=== PATIENT | female | born 1935 | race American Indian/Alaskan Native ===

== ENCOUNTER 2017-01-09 06:07 | Inpatient (IN) | payer MEDICARE ==
--- NOTE | 2016-12-30 09:47 | Anesthesia Consultation ---
Anesthesia Consult and Med Hx Date of service: 01/09/17 - Airway Anesthetic Teeth Evaluation: Good ROM Head & Neck: Adequate Mental/Hyoid Distance: Adequate Mallampati Class: Class II Intubation Access Assessment: Probably Good - Pre-Operative Health Status Proposed Anesthetic Plan: Epidural, Spinal Nerve Block: adducter canal block - Pulmonary Hx Smoking: Yes (STOPPED X 25 YRS-1 PPD X 30 YRS) Hx Asthma: No SOB: Yes (SOB) Hx Sleep Apnea: No (VANESSA PRE SCEEN HIGH RISK) - Cardiovascular System Hx Hypertension: Yes (X 7 YRS) - Central Nervous System Hx Neuromuscular Disorder: Yes (Dementia x 2 yrs (mild)) Hx Seizures: No CVA: No - Gastrointestinal Hx Gastroesophageal Reflux Disease: Yes (Mild) - Endocrine Hx Renal Disease: No Hx Non-Insulin Dependent Diabetes: No - Hematic Hx Anemia: No - Other Systems Hx Cancer: No
--- NOTE | 2017-01-08 13:53 | Admit Criteria Form ---
Admission Criteria Documentation: AMBULATORY SURGERY EXCEPTION CRITERIA Ambulatory Surgery Exception Criteria ( Place 'X' for any and all applicable criteria): Surgery or procedure performed on ambulatory basis may require inpatient stay for[A] ANY ONE of the following(1)(2)(3)(4)(5)(6)(7)(8)(9): [X] I. A preoperative situation, condition, or finding that warrants inpatient stay as indicated by ANY ONE of the following: [] a) Inpatient care needed because of severity of a disease or condition rather than the surgery (eg, severe cardiac or respiratory disease, severe infection) (15) (16 ) (17) (18) [] b) Emergent procedure (eg, angioplasty for acute ischemia)(19) [] c) Complex surgical approach or situation as indicated by ANY ONE of the following(3): [] i) Open approach needed instead of usual endoscopic, transcatheter, or other less invasive procedure [] ii) Difficult approach because of previous operation [] iii) Airway monitoring required after open neck procedures(20)(21) [] iv) Large mass requiring unusually extensive dissection [] v) Additional complicating feature requiring inpatient care (eg, drain management)(22(23): [X] d) Major surgery in a pt with high anesthetic risk as indicated by ANY ONE of the following (2)(3)(5)(7)(8): [X] i) ASA risk class III or higher (severe systemic disease impairing function) [D] [] ii) Advanced age (eg, older than 85 years)(14)(24) [] iii) Symptomatic heart failure(25) [] iv) Symptomatic asthma or COPD(8)(21) [] v) Morbid obesity with hemodynamic or respiratory problems(20)( 21)(26)(27) [] vi) Obstructive sleep apnea(20)(21) [] vii) Former premature infants who are younger than 60 weeks [] viii) High risk for severe postoperative abnormalities (eg, severe postoperative hypocalcemia after parathyroidectomy for severe hyperparathyroidism)(27)( 28) [] ix) Unstable angina(25) [] e) Drug-related risk requiring inpatient stay as indicated by ANY ONE of the following(5)(10)(14)(32)(33) [] i) Procedure requires discontinuing drugs or other therapy (eg , antiarrhythmic medication, antiseizure medication), which necessitates inpatient observation or treatment.(18)(31) [] ii) Major surgery and high risk drug use as indicated by ANY ONE of the following: [] 1) Active abuse of cocaine or similar drug [] 2) Monoamine oxidase inhibitor use [] 3) Other drug identified as posing risk [] f) Inadequate outpatient care situation as indicated by ANY ONE of the following(5)(10)(14)(32)(33) [] i) Patient lives remote from medical facility and procedure has urgent complication potential, and temporary nearby residence cannot be arranged [] ii) Patient will have postprocedure incapacitation and inadequate assistance at home, or alternative level of care cannot be arranged. [] iii) Patient will have long general anesthesia or procedure side effect resolution time, and competent person to stay with patient on first postoperative night at home or alternative level of care cannot be arranged. []iv) Other inadequate outpatient situation that cannot be handled by other means [] II. A perioperative event, condition, or finding that warrants inpatient stay as indicated by ANY ONE of the following (1)(2)(3): [] a) Inadequate physiologic recovery: cardiovascular, respiratory, or hemodynamic status not normal or near preoperative baseline(18) [] b) Hemodynamic instability [] c) Patient not alert with near normal or baseline mental status [] d) Temperature not normal or as expected and not appropriate for outpatient treatment of condition [] e) Ambulatory or appropriate activity level status not yet achieved post procedure [E](34)(35)(36) [] f) Operative site not appropriate (eg, unexpected or excessive drainage or bleeding) [] g) Postoperative effects not resolved or adequately managed (eg, significant pain or vomiting not appropriate for outpatient or next level of care)(10)(12) [] h) Complicating features requiring inpatient care as indicated by ANY ONE of the following(37): [] i) Severe complications of procedure (eg, bowel injury, airway compromise, vascular injury,severe hemorrhage) [] ii) Extensive (eg, dissection far beyond usual scope of procedure ) or prolonged (eg, 120 minutes beyond usual) surgery needed requiring inpatient postoperative care [] iii) Conversion to an open or complex procedure that requires inpatient care (eg, open vs laparoscopic cholecystectomy, abdominal vs vaginal hysterectomy)(38) [] iv) Comorbid condition or test result identified during or post procedure that requires inpatient care (7) [] v) Malignant hyperthermia(30) [] vi) Other complicating feature requiring inpatient care(22)(23) Inpatient stay may be needed until ALL of the following are present (1)(2)(3)(4) (5)(6)(10)(14)(33)(40): []a) Physiologic recovery: cardiovascular, respiratory, and hemodynamic status normal or near preoperative baseline []b) Hemodynamic stability []c) Patient alert, with near normal or baseline mental status []d) Temperature appropriate: patient afebrile or temperature appropriate for outpt treatment of condition []e) Activity level appropriate: ambulatory or appropriate activity level post procedure []f) Operative site appropriate as indicated by ALL of the following: []i) Site dry or with expected drainage []ii) Any blood noted is as expected for procedure. []g) Postoperative effects resolved or managed as indicated by ALL of the following: []i) Pain management appropriate for outpatient (or next level of) care(10) []ii) Minimal nausea and vomiting: if present, successfully treated with oral medication(12) []iii) Headache, dizziness, or drowsiness (if present) are mild. []h) Voiding status acceptable as indicated by ANY ONE of the following: []i) Voiding spontaneously []ii) No voiding but instructions given for follow-up in 6 to 8 hours []iii) Urinary catheter in place, and instructions given for follow-up []i) Complicating features requiring inpatient care manageable at a lower level of care(37) []j) Comorbid conditions manageable at a lower level of care(37) The original [employer] content created by [employer] has been revised. The portions of the content which have been revised are identified through the use of italic text or in bold, and [facility] [employer] has neither reviewed nor approved the modified material. All other unmodified content is copyright [employer]. Please see references footnoted in the original [employer] edition 2016 Admission Criteria Met: Yes
[~2017-01-09 06:07] MED LIST: ANCEF/STERILE WATER 2 GM/20 ML IV NR; BACITRACIN IR ONE; LACTATED RINGERS 1,000 ML IV SCH; MARCAINE 0.25% INFILTRATI ONE; MORPHINE IM ONE; NACL INFILTRATI ONE; PEPCID IV NR; POLYMYXIN B SULFATE IV ONE; TORADOL PO ONE
[2017-01-09] MEDS ORDERED: NACL BACTERIOSTATIC INFILTRATI ONE (06:38)
[2017-01-09] MEDS ORDERED: VERSED IV NR (07:00)
[2017-01-09] MEDS ORDERED: NEURONTIN PO NR (07:00)
[2017-01-09] MEDS ORDERED: DECADRON ONE (07:04)
[2017-01-09] MEDS ORDERED: MARCAINE-EPI 0.5%-1:200,000 INFILTRATI ONE (07:04)
[2017-01-09] MEDS ORDERED: MORPHINE ONE (07:05)
--- NOTE | 2017-01-09 07:27 | Anesthesia Day of Surgery ---
Anesthesia Day of Surgery - Day of Surgery Patient Examined: Yes Patient H&P Reviewed: Yes Patient is NPO: Yes Beta Blockers: Yes
[2017-01-09] MEDS ORDERED: DIPRIVAN 10 MG/ML IV ONE (07:32)
[2017-01-09] MEDS ORDERED: XYLOCAINE MPF 2% ONE ×3 (07:33→10:30)
[2017-01-09] MEDS ORDERED: DIPRIVAN 10 MG/ML 1,000 MG/100 ML BOTTLE IV ONE (07:36)
[2017-01-09] MEDS ORDERED: TRANEXAMIC ACID 1,000 MG in NACL 0.9% 100 ML IV NR (08:00)
[2017-01-09] MEDS ORDERED: NACL 0.9% ONE (08:00)
[2017-01-09] MEDS ORDERED: XYLOCAINE 1%/ EPI 1:100,000 INFILTRATI ONE (08:32)
[2017-01-09] MEDS ORDERED: ZEMURON IV ONE (09:09)
[2017-01-09] MEDS ORDERED: LACTATED RINGERS 1,000 ML ONE (09:22)
[2017-01-09] MEDS ORDERED: NON-FORMULARY (Esomeprazole Magnesium [Nexium] 40 MG) PO SCH (10:00)
[2017-01-09] MEDS ORDERED: NON-FORMULARY (Cholecalciferol (Vitamin D3) [Vitamin D3] 5,000 UNIT) PO SCH (10:00)
[2017-01-09] MEDS ORDERED: ROBINUL ONE (10:09)
[2017-01-09] MEDS ORDERED: NEOSTIGMINE ONE (10:09)
[2017-01-09] MEDS ORDERED: ZOFRAN ONE (10:17)
[2017-01-09] MEDS ORDERED: BACITRACIN IR ONE (10:30)
[2017-01-09] MEDS ORDERED: POLYMYXIN B SULFATE IV ONE (10:30)
[2017-01-09] MEDS ORDERED: TORADOL PO ONE (10:42)
[2017-01-09] MEDS ORDERED: NACL INFILTRATI ONE (10:42)
[2017-01-09] MEDS ORDERED: MARCAINE 0.25% INFILTRATI ONE (10:42)
[2017-01-09] MEDS ORDERED: MORPHINE IM ONE (10:42)
[2017-01-09] MEDS ORDERED: PHENERGAN PR PRN (11:06)
[2017-01-09] MEDS ORDERED: TORADOL IV PRN (11:10)
[2017-01-09] MEDS ORDERED: ROXICODONE PO PRN (11:15)
[2017-01-09] MEDS ORDERED: PROVENTIL IH ONE ×2 (11:55→12:06)
[2017-01-09] MEDS ORDERED: MILK OF MAGNESIA PO PRN (12:00)
[2017-01-09] MEDS ORDERED: SODIUM CHLORIDE FLUSH SYRINGE 10 ML IV NR (12:00)
[2017-01-09] MEDS ORDERED: ePHEDrine SULFATE IV PRN (12:10)
[2017-01-09] MEDS ORDERED: ePHEDrine SULFATE ONE (12:10)
[2017-01-09] MEDS ORDERED: NARCAN 0.4 MG/1 ML IV PRN (12:25)
[2017-01-09] MEDS ORDERED: NARCAN 0.4 MG/1 ML ONE (12:25)
[2017-01-09] MEDS ORDERED: VASELINE LIP THERAPY TP PRN (12:45)
[2017-01-09] MEDS ORDERED: ARTIFICIAL TEARS OPHTH OINT OU PRN (12:45)
[2017-01-09 12:46] LABS: ISTAT Base Excess -5; ISTAT HCO3 22.5; ISTAT PH 7.261 (7.35-7.45); ISTAT PO2 162 (80-105); ISTAT SO2 99; ISTAT TCO2 24
[2017-01-09] MEDS ORDERED: NACL 0.9% 500 ML IV SCH (13:00)
--- NOTE | 2017-01-09 13:33 | Post Anesthesia Evaluation ---
- Post Anesthesia Evaluation Patient Participated: No (patient narocotized) Airway Patent: Yes Stable Respiratory Function: Yes Nausea/Vomiting: No Temp > 96.8F: Yes Pain Manageable: Yes Adequeate Hydration: Yes Anesthesia Complications: No Block Receding Appropriately: Yes Patient on Ventilator: Yes
--- NOTE | 2017-01-09 13:36 | Event Note ---
Date: 01/09/17 Patient taken to Pacu postop with endotracheal tube in place on t-piece. Patient had received narcotic in care home prior to coming to hospital and likely still narcotized from that dose as she has not received any narcotics from here. In pacu patient still unresponsive 30min postop and we elected to place patient on vent and transfer to ICU for postop care until she is extubatable. Spoke to Dr. Hammer about plan and Dr. Rodriguez is accepting critical care management of patient. I also spoke to patients son about plan for ICU postop care.
--- NOTE | 2017-01-09 14:11 | Consultation ---
History of Present Illness Consult date: 01/09/17 Requesting physician: NAILA RODRÍGUEZ Reason for consult: other (Acute Hypoxemic Hypercapnic Respiratory Failure) History of present illness: PULMONARY/CCM CONSULT NOTE (Full dictation # [id number]) Please see dictated notes for full details Medications and Allergies Allergies Allergy/AdvReac Type Severity Reaction Status Date / Time iodine Allergy Unknown Verified 03/10/15 13:28 Home Medications Medication Instructions Recorded Confirmed Last Taken Type Docusate Sodium [Promolaxin] 100 mg PO PRN PRN 03/10/15 12/17/16 01/08/17 History Esomeprazole Magnesium [NexIUM] 40 mg PO QDAY 03/10/15 12/17/16 01/08/17 History Ibuprofen [Motrin] 800 mg PO TID PRN 03/10/15 01/09/17 12/17/16 History Lisinopril [Zestril] 20 mg PO QDAY 03/10/15 01/09/17 01/09/17 05:30 History Lurasidone (Nf) [Latuda] 80 mg PO QDAY 03/10/15 12/17/16 01/08/17 History Memantine (Nf) [Namenda] 10 mg PO BID 03/10/15 12/17/16 01/08/17 History Acetaminophen/Codeine [Tylenol #3] 1 tab PO Q4HR PRN #30 tablet 03/16/1501/08/17 Rx Metoprolol [Lopressor] 25 mg PO DAILY 12/17/16 01/09/17 01/08/17 10:00 History cloZAPine 100 mg PO QHS 12/17/16 12/17/16 01/08/17 History Cholecalciferol (Vitamin D3) 5,000 unit PO DAILY 12/19/16 12/19/16 01/08/17 History [Vitamin D3] Ergocalciferol [Vitamin D2] 1 cap PO QWEEK 12/19/16 12/19/16 01/08/17 History Ferrous Gluconate [Fergon 325 MG 325 mg PO QDAY 12/19/16 12/19/16 01/08/17 History tab] Polyethylene Glycol 3350 1 dose PO DAILY 12/19/16 12/19/16 01/08/17 History Pravastatin Sodium [Pravastatin] 20 mg PO QHS 12/19/16 12/19/16 01/08/17 History Acetaminophen [Tylenol] 2 tab PO ONCE 01/09/17 01/09/17 01/09/17 05:30 History Celecoxib [Celecoxib] 1 tab PO ONCE 01/09/17 01/09/17 01/09/17 05:30 History Gabapentin [Gabapentin] 1 tab PO ONCE 01/09/17 01/09/17 01/09/17 05:30 History Oxycodone HCl [Oxycontin] 10 mg PO ONCE 01/09/17 01/09/17 01/09/17 05:30 History Active Meds: Active Medications Acetaminophen (Tylenol) 650 mg PO Q4H PRN PRN Reason: Pain MILD(1-3)/Fever >100.5/GODOY Cholecalciferol (Vitamin D3) 5,000 unit PO DAILY GLENNY Ephedrine Sulfate (Ephedrine Sulfate) 20 mg IV Q5M PRN PRN Reason: Blood Pressure Last Admin: 01/09/17 12:15 Dose: 20 mg Ergocalciferol (Vitamin D2) 50,000 unit PO We GLENNY Famotidine (Pepcid) 20 mg IV PREOP NR Stop: 01/09/17 23:59 Last Admin: 01/09/17 07:14 Dose: 20 mg Ferrous Gluconate (Fergon) 325 mg PO QDAY [facility] Gabapentin (Neurontin) 300 mg PO PREOP NR Stop: 01/09/17 23:59 Hydrophilic Ointment (Vaseline Lip Therapy) 1 applic TP Q2HR PRN PRN Reason: Dry Lips Lactated Ringer's (Lactated Ringers) 1,000 mls @ 100 mls/hr IV DIRECT GLENNY Last Admin: 01/09/17 06:45 Dose: 100 mls/hr Cefazolin Sodium 2 gm/ Sodium (Chloride) 100 mls @ 200 mls/hr IV Q8H GLENNY Stop: 01/10/17 08:29 Ketorolac Tromethamine (Toradol) 15 mg IV Q6H PRN PRN Reason: Pain, Moderate (4-6) Stop: 01/09/17 17:11 Magnesium Hydroxide (Milk Of Magnesia) 30 ml PO Q4H PRN PRN Reason: Constipation Midazolam HCl (Versed) 2 mg IV PREOP NR Stop: 01/09/17 23:59 Miscellaneous Medication (Clozapine [Clozapine]) 100 mg PO QHS [facility] Multi-Ingred Cream/Lotion/Oil/Oint (Artificial Tears Ophth Oint) 1 applic OU Q4HR PRN PRN Reason: Dry Eye(s) Naloxone HCl (Narcan 0.4 Mg/1 Ml) 0.1 mg IV ONCE PRN PRN Reason: Sedation Last Admin: 01/09/17 13:38 Dose: 0.1 mg Oxycodone HCl (Roxicodone) 5 mg PO Q6H PRN PRN Reason: Pain, Moderate (4-6) Pantoprazole Sodium (Protonix) 40 mg PO DAILY [facility] Promethazine HCl (Phenergan) 25 mg MA Q6H PRN PRN Reason: Nausea And Vomiting Rivaroxaban (Xarelto) 10 mg PO QDAY [facility] PRN Reason: Protocol Stop: 01/22/17 09:59 Sodium Chloride (Sodium Chloride Flush Syringe 10 Ml) 10 ml IV PRN NR Stop: 01/14/17 23:59 Sodium Chloride (Nacl 0.9% 500 Ml) 1 ml IV DIRECT GLENNY Physical Examination Vital signs: Vital Signs Temp Pulse Resp BP 98.0 F 74 18 142/80 12/30/16 09:00 12/30/16 09:00 12/30/16 09:00 12/30/16 09:00 Results - Laboratory Findings ABG POC ABG pH 7.261 (7.35-7.45) L 01/09/17 12:36 POC ABG pCO2 50.0 (35-45) H 01/09/17 12:36 POC ABG pO2 162 (80-105) H 01/09/17 12:36 POC ABG HCO3 22.5 01/09/17 12:36 POC ABG Total CO2 24 01/09/17 12:36 POC ABG O2 Sat 99 01/09/17 12:36 Abnormal lab findings: Abnormal Labs 01/09/17 01/09/17 01/09/17 06:54 11:52 12:36 POC ABG pH 7.261 L POC ABG pCO2 50.0 H POC ABG pO2 162 H POC Glucose 110 H 132 H
--- NOTE | 2017-01-09 14:37 | Operative Report ---
SURGEON: Rick Hammer MD NITRO MAN: Neha operative tech and Jono operative tech. PREOPERATIVE DIAGNOSES: 1. Severe advanced osteoarthritis of the left knee joint. 2. Genu valgum deformity. 3. Stiff left knee joint. POSTOPERATIVE DIAGNOSES: 1. Severe advanced osteoarthritis of the left knee joint. 2. Genu valgus deformity. 3. Stiff left knee joint. 4. Synovial hypertrophy and synovial proliferation. COMPLICATIONS: None. BLOOD LOSS: Minimal. PROCEDURES PERFORMED: 1. Left total knee replacement, complex. 2. Partial synovectomy, left knee joint. IMPLANTS USED: [employer] Oxinium femoral components, size 4, left, narrow, ____, tibial tray Fabby 2, left, size 3. Prolong poly-S and the size 11 mm, constrained patella, 29 mm, 3 post, 7.5 mm thick. Medial release no, lateral release yes, pie crusting and IT band release. Partial synovectomy, epicondylar angle 4 degree. Cement Palacos R + G. Incision, midline incision. Arthrotomy, medial parapatellar arthrotomy. Epicondylar angle 4 degree. DETAILS OF THE OPERATIVE REPORT: The patient was taken to the operating room. After smooth general endotracheal anesthesia, all the bony prominences carefully padded, placed supine on the operating table. Richmond catheter placed. Thigh tourniquet placed. Antibiotic given [id number] before the procedure. Left knee and left lower extremity prepped and draped in sterile fashion. Leg elevated, tourniquet inflated to 300 mmHg. Longitudinal incision made over anterior aspect of the knee, exposing extensor mechanism. Arthrotomy performed. Patella displaced laterally. Gross findings revealed severe advanced degenerative arthritis, significant osteophytes, significant stiffness and scar, and we had to do necessary release proximally to get to the proper exposure, it showed that the patella could be displaced laterally and subluxed laterally as the significant stiffness in the knee, significant limitation in the range of motion and flexion leading to difficult exposure. We took necessary time and did appropriate release. Additional procedures to get the proper necessary exposure. Once this was performed, subcapsule on the medial side was released to just place the retractors, no medial release was performed. Drill was used to open up the femoral canal. Distal intramedullary femoral cutting guide was placed. Distal femur resected 5 degree valgus angle. Epicondylar access apex was determined. Femoral sizing guide was placed, appropriate components selected. Anterior and posterior condyles were resected with oscillating saw. Extramedullary tibial cutting guide was placed, proximal tibia resected perpendicular to the long axis of tibia about 6-7 mm from the proximal medial tibia was resected, given the severe arthritic lateral compartment, bone-bone lateral compartment. There was significant amount of bones spurs and big osteophytes, a chunk of bone remaining on the posterolateral aspect of the knee, which was removed carefully with curved curettes ____ a Bovie. We took additional time for that, added complexity to the case. Significant tightness was present laterally on the flexion, extension, and release of popliteus and IT band was performed in a piecrust manner and the capsule was released as well. A good balancing was performed. Once this was done, tibial tray was prepped, tibia was prepared. Tibial tray was placed in proper position, proper external rotation, impacted and prepared by reaming and punch technique by placing the tray in proper position, proper external rotation. The alignment was checked and a trial was then placed, prepared for the box through reaming and punch technique through Juan and [employer] trial femur. We trialed with 11 poly, we had great stability, full extension, full flexion. Patellar tracking central. Patella prepared with patellar reaming system, prepared for 3 post-patella. The knee moved through full extension, full flexion. Patellar tracking central, stable throughout range of motion, stable knee on examination. Given the significant medial collaterals ligament stretch and significant tightness on the lateral side, necessary gap balancing and release on the lateral side was performed, but given the significant preop ____ we decided to go with a constrained poly given the better that would give us better stability. We removed the trial components, thoroughly washed the knee area with antibiotic-soaked normal saline followed by normal saline and cementing of the knee was performed first. Tibia was cemented first, set in proper position, proper external rotation, impacted in place. Excess cement was removed. Femur was cemented in proper position, proper external rotation, impacted in place. Excess cement was removed. Trial liner was placed, cementing of the patella was performed, compressed in place. Excess cement was removed. Once the cement was hardened, real tibial articulating surface was implanted. As the poly was locked in place, we moved the knee through range of motion. We had full extension, full flexion. Patellar tracking central, stable throughout range of motion. Partial synovectomy was performed given the significant synovial hypertrophy and proliferation. Tourniquet released. Hemostasis achieved. No active bleeder as such. The thorough washing was done. Following that, the closure was performed with 0 Vicryl, 2-0 Vicryl interrupted sutures and 1 Ethibond sutures on the arthrotomy. Before the closure was performed, the pain cocktail injection was injected into the knee throughout the knee as well. Arthrotomy closed with 0 Vicryl sutures and 1-0 Ethibond sutures. Subcutaneous tissue closed with 0 and 2-0 Vicryl interrupted sutures, skin was closed with Monocryl. Aquacel dressing was done. Peyman wrap applied. The patient tolerated the procedure well, shifted to recovery room in stable condition. Sponge and needle count was correct. The patient was moved to the PACU with tube in and she was breathing by herself as per the anesthesia doctor and she was completely stable as per the anesthesia. JOB# [id number] TAB/ELSA
--- NOTE | 2017-01-09 14:43 | XRay Report ---
AP CHEST: HISTORY: Endotracheal tube placement. The endotracheal tube is in adequate position terminating 4.2 cm superior to the jeremy. Heart and mediastinal structures are within normal limits. The lungs are grossly clear. No significant change since 03/15/15. IMPRESSION: Adequate placement of the endotracheal tube. No acute cardiopulmonary process.
--- NOTE | 2017-01-09 14:43 | XRay Report ---
LEFT KNEE, 2 VIEWS History: Pain, postoperative film. Findings: Recent left knee arthroplasty changes are identified. The hardware was well applied. No fracture or malalignment is appreciated. Impression: Stable appearance of the left knee prosthesis.
[2017-01-09 14:49] LABS: ISTAT Base Excess -6; ISTAT PCO2 37.1 (35-45); ISTAT PO2 74 (80-105); ISTAT SO2 94; ISTAT TCO2 21
[2017-01-09 15:13] LABS: Basophils % (Auto) 0.4 % (0.0-1.8); Eosinophils % (Auto) 1.1 % (0.0-4.3); Hematocrit 34.7 % (30.3-42.9); Mean Corpuscular HGB Conc 32 % (30-34); Mean Corpuscular Hemoglobin 27 pg (28-32); Mean Corpuscular Volume 86 fl (79-97); Platelet Count 127 K/mm3 (140-440); Red Blood Count 4.03 M/mm3 (3.65-5.03); Red Cell Distribution Width 14.3 % (13.2-15.2); White Blood Count 6.9 K/mm3 (4.5-11.0)
[2017-01-09 15:33] LABS: Alanine Aminotransferase 10 units/L (7-56); Albumin 3.3 g/dL (3.9-5); Albumin/Globulin Ratio 1.2 %; Alkaline Phosphatase 113 units/L (35-129); Anion Gap 20 mmol/L; BUN/Creatinine Ratio 13.75; Bilirubin,Total 0.2 mg/dL (0.1-1.2); Blood Urea Nitrogen 11 mg/dL (7-17); Calcium 8.2 mg/dL (8.4-10.2); Carbon Dioxide 20 mmol/L (22-30); Chloride 106.4 mmol/L (98-107); Glucose 154 mg/dL (65-100); Magnesium 1.7 mg/dL (1.7-2.3); Phosphorous 3.3 mg/dL (2.5-4.5); Potassium 3.9 mmol/L (3.6-5.0); Sodium 142 mmol/L (137-145); Total Protein 6.1 g/dL (6.3-8.2)
--- NOTE | 2017-01-09 15:47 | Progress Note ---
Subjective Date of service: 01/09/17 Interval history: Patient was seen this morning. Was sleepy. She did revieve one dose of oxycontin. She Was also seen by the anaesthesia doctor Dr. Mario Landis in the morning when i walked in and As per the analysis from him and Anaesthesia she was ok to go for surgery. After the uneventful surgery, anaesthetist said that she is slow in the recovery when trying to extubate. She received General anaesthesia. Anaesthetist who was dealing with the patient intraop said that she is breathing on her own but will leave the intubation. Spoke to The anaethesia doctor. Also spoke to the lung doctor who stated that her CO2is high probably anaesthesia gas related.Saw patient in the ICU. cALF PUMP RECOMMENDED BUT NURSE STATED THAT THEY DONT HAVE IT. Heel protection offered. Family involved and informed about the situtaion. They are aware and were appreciative of what I did. High risk given her age discussed. They are aware. Objective Vital signs: Vital Signs - 12hr 01/09/17 01/09/17 01/09/17 06:40 07:10 07:21 Temperature 97.9 F Pulse Rate 70 73 69 Respiratory 16 12 20 Rate Blood Pressure 154/64 179/73 176/80 O2 Sat by Pulse 96 99 99 Oximetry 01/09/17 01/09/17 01/09/17 07:26 07:31 07:33 Temperature Pulse Rate 69 78 70 Respiratory 16 16 16 Rate Blood Pressure 173/67 116/96 176/76 O2 Sat by Pulse 96 97 96 Oximetry 01/09/17 01/09/17 01/09/17 07:35 07:41 07:46 Temperature Pulse Rate 77 75 72 Respiratory 14 12 12 Rate Blood Pressure 144/61 131/47 102/38 O2 Sat by Pulse 96 96 95 Oximetry 01/09/17 01/09/17 01/09/17 07:50 12:10 15:12 Temperature Pulse Rate 72 Respiratory 14 Rate Blood Pressure 105/41 90/40 O2 Sat by Pulse 95 98 98 Oximetry - Labs CBC & BMP: 01/09/17 14:48 01/09/17 14:48 Labs: Abnormal lab results 01/09/17 01/09/17 01/09/17 Range/Units 06:54 11:52 12:36 MCH (28-32) pg Plt Count (140-440) K/mm3 Lymph % (Auto) (13.4-35.0) % Lymph # (1.2-5.4) K/mm3 Seg Neutrophils % (40.0-70.0) % POC ABG pH 7.261 L (7.35-7.45) POC ABG pCO2 50.0 H (35-45) POC ABG pO2 162 H (80-105) Carbon Dioxide (22-30) mmol/L Glucose (65-100) mg/dL POC Glucose 110 H 132 H (70-105) Calcium (8.4-10.2) mg/dL Total Protein (6.3-8.2) g/dL Albumin (3.9-5) g/dL 01/09/17 01/09/17 01/09/17 Range/Units 14:39 14:48 14:48 MCH 27 L (28-32) pg Plt Count 127 L (140-440) K/mm3 Lymph % (Auto) 8.2 L (13.4-35.0) % Lymph # 0.6 L (1.2-5.4) K/mm3 Seg Neutrophils % 87.5 H (40.0-70.0) % POC ABG pH 7.340 L (7.35-7.45) POC ABG pCO2 (35-45) POC ABG pO2 74 L (80-105) Carbon Dioxide 20 L (22-30) mmol/L Glucose 154 H (65-100) mg/dL POC Glucose (70-105) Calcium 8.2 L (8.4-10.2) mg/dL Total Protein 6.1 L (6.3-8.2) g/dL Albumin 3.3 L (3.9-5) g/dL
[2017-01-09] MEDS: ceFAZolin 2 GM in NACL 0.9% 100 ML IV SCH (17:00)
--- NOTE | 2017-01-09 19:24 | Event Note ---
Date: 01/09/17 Tried bedside SBT; was hypoventilating and ventilator kicked in She does move all extremities and follows commands appropriately when stimulated and i doubt intracranial lesion A&P: - still suspect relative oversedation/intolerance of analgesia - repeat ABG at 9pm to ensure no significant acidosis / hypercapnia - hold all sedatives - daily PSV trials ...care plan discussed with son in room
[2017-01-09] MEDS: NACL 0.9% 1000 ML 1,000 ML IV SCH (20:15)
[2017-01-09 21:27] LABS: ISTAT Base Excess -5; ISTAT HCO3 22.3; ISTAT PH 7.256 (7.35-7.45); ISTAT PO2 118 (80-105); ISTAT SO2 98; ISTAT TCO2 24
[2017-01-09] MEDS ORDERED: NON-FORMULARY (Clozapine [Clozapine] 100 MG) PO SCH (22:00)
[2017-01-09] MEDS ORDERED: ASPIRIN PO SCH (22:00)
[2017-01-09] MEDS: ZOSYN/NS 4.5GM/100ML 4.5 GM/100 ML VIAL IV SCH (22:20)
--- NOTE | 2017-01-10 00:41 | Consultation ---
CONSULTING PHYSICIAN: Mario Landis MD, anesthesiologist. REASON FOR CONSULTATION: Acute hypoxemic hypercapnic respiratory failure. CHIEF COMPLAINT AND HISTORY OF PRESENT ILLNESS: The patient is an 81-year-old -[place] female with past medical history amongst other things significant for chronic knee pain and obesity who reportedly came into the ER today for an elective total knee replacement, left total knee replacement surgery. Reportedly, she received some OxyContin prior to leaving the [facility]. At the time of surgery, she was a little bit drowsy. It was felt this wear off postop. Postoperatively, she was brought into the postanesthesia recovery unit; however, the patient remained to be lethargic. Arterial blood gases showed a combined mixed acidosis. A decision was made by the anesthesiologist to ____ from the ventilator. When I stopped to see her, she was on mechanical ventilator, sed rate of 20, tidal volumes 500, PEEP of 5. She was riding in the set rates. She was still lethargic. She was able to nod her head and squeeze my fingers to command. She denied any acute chest pain. She does have a [id number] remote tobacco smoking history. I do not have any history of emesis or overt aspiration. The above is as much of the history of presentation as I have. PAST MEDICAL HISTORY: According to the records, history of hypertension. She is obese. She has a chronic knee pain. She has a history of mild dementia, history of gastroesophageal reflux disease. PAST SURGICAL HISTORY: Unknown. MEDICATIONS: She was on at the time I stopped by to see her, according to the medication administration record included the following: Tylenol 650 mg p.o. q.4h. p.r.n., vitamin D3 5000 units p.o. daily, vitamin D2 50,000 units p.o. every Friday, Pepcid 20 mg IV preop, ferrous gluconate 325 mg p.o. daily, Neurontin 300 mg p.o. preop, Toradol mg IV q.6h. p.r.n. moderate pain, lactated Ringer's was going at 100 mL per hour for a total of 1 liter, p.r.n. milk of magnesia, p.r.n. Narcan, Oxycodone 5 mg p.o. 6 hours p.r.n. moderate pain, Protonix 40 mg p.o. daily, Phenergan 25 mg p.o. q.6h. p.r.n. nausea and vomiting, Xarelto 10 mg p.o. daily. All p.o. medications will be via the feeding tube. ALLERGIES: Iodine, nature of this allergy is unknown. DIET: Obese lady. According to the sons, no acute weight loss or gain in preceding few weeks to months. FAMILY AND SOCIAL HISTORY: skilled nursing resident. A 30+ pack year tobacco smoking history, remote. No current alcohol, tobacco, or illicit drug use or abuse. REVIEW OF SYSTEMS: Unobtainable secondary to the patient's medical and mental condition. Since she has been here, no gross hematochezia or melena, no gross hematuria, no hematemesis, no hemoptysis, no bloody tracheal secretions, no witnessed seizures. PHYSICAL EXAMINATION: VITAL SIGNS: At presentation review of the vital signs shows afebrile, temperature 98.0, pulse was 74, respiratory rate was 18, blood pressure was 142/80, oxygen sats were 96%, inspired oxygen concentration was not recorded. HEAD, EYES, EARS, NOSE, AND THROAT: Pupils are equal, round, about 2-3 mm, sluggishly reactive to light. Extraocular muscle movements are intact. Endotracheal tube is in place, taped at the lips around 23-24 cm. Grossly, no palpable lymph nodes in the supraclavicular or submandibular lymph node chains. LUNGS: Auscultation of both lung hewitt, lungs are clear bilaterally. HEART: Heart sounds 1 and 2 are heard, regular rate and rhythm at the time of my evaluation. ABDOMEN: Soft, full, bowel sounds are positive, nontender. EXTREMITIES: Mild edema especially to the left leg. No significant digital clubbing or cyanosis. NEUROLOGIC: The exam was grossly nonfocal. She was a little bit lethargic. LABORATORY DATA: From my review are as follows: Arterial blood gas showed a pH of 7.26, pCO2 of 50, pO2 of 162 that was on 50% FIO2. Ventilator settings were not recorded. I do not have any other lab workup. RADIOGRAPHIC STUDIES: I am pulling up the film. The x-ray did show the ET tube in place, tip was at the lower border of the clavicular heads. There was no gross pneumothorax, no gross bony fracture, perhaps borderline cardiomegaly. ASSESSMENT AND PLAN: We have an elderly lady in with an acute unclear if it is on chronic hypoxemic hypercapnic respiratory failure presumably due to sedation from the OxyContin she received. We do need to err on the side of safety. From a respiratory standpoint, she will get an arterial blood gas on the current settings. The plan will be to begin weaning trials as soon as possible if the mental status is equivocal, we will rest her overnight and plan to extubate her in the morning. I will order bronchodilators, short acting in the short term. Aspiration precautions and other ventilator bundles will be instituted and we will follow clinically otherwise. From a cardiovascular standpoint, blood pressure is holding. We will follow her clinically. From a GI and nutritional standpoint, I will watch her over the next 2-4 hours. If she appears like she can be extubated shortly, we will hold on placing a feeding tube, otherwise we will place a feeding tube. Enteral nutrition will be the feeding modality of choice. Aspiration precautions are being maintained. She is appropriately on GI prophylaxis. From a renal standpoint, I will be ordering electrolytes and other labs at this point. She is making some urine now. Electrolytes will be collected as necessary. Inputs and outputs will be monitored. From a hematologic standpoint, she is appropriately on DVT prophylaxis. I will await the complete blood count. I will follow her clinically. 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 No acute indication for neuro imaging. We will follow her clinically. From a general and hospital healthcare maintenance standpoint, she is on GI and DVT prophylaxis. Flu and pneumonia vaccination will be per protocol. Thank you very much for the consult Dr. Landis. We will follow along and make further recommendations as picture progresses/becomes clearer. I have taken the time to explain the care plan to her children. At this time, I spent about 35-40 minutes of critical care time without overlap and excluding any procedural time that may be necessary. She is critically ill on life-sustaining interventions including mechanical ventilatory support at high risk for further deterioration including . JOB# [id number] ASAD/ELSA
[2017-01-10] MEDS: ceFAZolin 2 GM in NACL 0.9% 100 ML IV SCH ×2 (04:05→11:53)
[2017-01-10 04:32] LABS: Hematocrit 33.5 % (30.3-42.9); Hemoglobin 10.6 gm/dl (10.1-14.3)
[2017-01-10 04:42] LABS: INR 1.07 (0.87-1.13)
[2017-01-10 04:45] LABS: Anion Gap 19 mmol/L; BUN/Creatinine Ratio 15.55; Blood Urea Nitrogen 14 mg/dL (7-17); Calcium 7.9 mg/dL (8.4-10.2); Carbon Dioxide 21 mmol/L (22-30); Chloride 106.5 mmol/L (98-107); Glucose 119 mg/dL (65-100); Potassium 4.3 mmol/L (3.6-5.0); Sodium 142 mmol/L (137-145)
[2017-01-10 05:12] LABS: ISTAT Base Excess -3; ISTAT HCO3 22.7; ISTAT PCO2 42.2 (35-45); ISTAT PH 7.339 (7.35-7.45); ISTAT PO2 88 (80-105); ISTAT SO2 96; ISTAT TCO2 24
[2017-01-10] MEDS: ZOSYN/NS 4.5GM/100ML 4.5 GM/100 ML VIAL IV SCH ×3 (06:14→22:00)
--- NOTE | 2017-01-10 06:51 | Event Note ---
Date: 01/09/17 1600hrs See Consult in reports Acute resp failure sec to Anesthesia and deep sedation S/p TKA
--- NOTE | 2017-01-10 08:44 | History and Physical Report ---
CHIEF COMPLAINT: The patient intubated and could not be extubated postop after total knee arthroplasty. HISTORY OF PRESENT ILLNESS: An 81-year-old was brought in for total knee arthroplasty. The patient had a left total knee arthroplasty. Preop, the patient was doing well. The patient had an uneventful surgery. Post, the patient could not be extubated, hence the patient was continued on vent and being admitted to ICU for further care. Her CO2 is also high, probably anesthesia related and deep sedation and CO2 retention. Her pCO2 initially was 37.1 and later one was a 50.0. No fever, no chills. PAST MEDICAL HISTORY: Significant for osteoarthritis, peripheral neuropathy, hypertension, and dementia also. Hyperlipidemia. Constipation. Gastroesophageal reflux disease. Anemia. CURRENT MEDICATIONS: Tylenol No.3 q.4h. p.r.n., Celebrex 200 mg 1 tablet daily, gabapentin 300 mg 1 tablet at nighttime, lisinopril 20 mg once a day, Latuda 80 mg once a day, Namenda 10 mg twice a day, oxycodone 10 mg once a day and MiraLax 17 grams once a day, pravastatin 20 mg p.o. at bedtime, ibuprofen 800 mg 3 times a day, clozapine 100 mg p.o. at bedtime, vitamin D 50,000 units once a day, Nexium 40 mg p.o. daily, ferrous gluconate 324 mg p.o. daily. PAST SURGICAL HISTORY: Left total knee arthroplasty. Other surgeries no known. SOCIAL HISTORY: Does not smoke. No alcohol, no recreational drugs. Has 2 sons, who were very supportive at bedside. FAMILY HISTORY: Hypertension. REVIEW OF SYSTEMS: Could not be done as the patient is intubated. Whatever could be gathered: CONSTITUTIONAL: No weight loss, no weight gain. HEENT: No sore throat. No postnasal drip. CARDIOVASCULAR AND RESPIRATORY: No cough, no shortness of breath, no wheezing. No chest pain prior to surgery. GASTROINTESTINAL: No nausea, no vomiting, no diarrhea. GENITOURINARY: No dysuria, no flank pain. EXTREMITIES: Bilateral knee pain. SPOOLER: Slight dementia as per the sons. SKIN: No rashes. A 14-point review of systems is done. At this point, the patient is intubated. Review of systems obtained from the sons. PHYSICAL EXAMINATION: GENERAL: Elderly female; intubated; tidal volume of 500; respiratory rate, CMV 14. . VITAL SIGNS: Temperature of 94, heart rate of 53, blood pressure 126/48, and sats 100%. HEENT: Unremarkable. Pupils equal and reactive. Intubated. NECK: Supple, no lymphadenopathy, no thyromegaly. LUNGS: Clear to auscultation and percussion. Good air entry. CARDIOVASCULAR: S1, S2 heard. No gallop, no murmur, no rub. Apical impulse in left fifth intercostal space and midclavicular line. ABDOMEN: Soft and benign. No hepatosplenomegaly. No guarding, no rigidity. Hernial orifices are normal. EXTREMITIES: Good pedal pulses. No pedal edema. CENTRAL NERVOUS SYSTEM: Unresponsive at this point. The patient is intubated. Moves all 4 extremities. SKIN: Normal. EXTREMITIES: Good range of motion. LABORATORY DATA: Significant for white count of 6900, H and H 11.0 and 34.7, platelet count is 127,000. pH is 7.34, pCO2 is 37, pO2 74, bicarbonate is 20. Sodium is 142, potassium is 3.9, chloride is 106, bicarbonate is 20, BUN and creatinine 11 and 0.8, glucose is 154, calcium is 8.2, phosphorus is 3.3, magnesium is 1.7. Total bilirubin 0.2, AST 16, ALT 10, alkaline phosphatase is 113, total protein 6.1, albumin is 3.3. Repeat ABG is 7.256 of pH, pCO2 is 50, pO2 is 118, bicarbonate is 22.3, total CO2 is 24, sats are 98% and FIO2 of 40. ASSESSMENT AND PLAN: 1. Acute respiratory failure secondary to anesthesia and deep sedation. CO2 retention present. The patient will wean off ventilator as feasible. Probable intubation for 1 day. 2. Hypothermia, the patient kept in warm blanket. Empiric antibiotics started. May be stopped if the patient could be intubated and the patient is with normal vital signs tomorrow. 3. Hypertension. We will resume lisinopril as necessary. 4. Dementia. We will hold the Namenda. We will hold the Latuda. 5. Hyperlipidemia. We will hold the pravastatin for the time being. They are emergent. 6. Psychiatric disorder. Unclear what the psychiatry problem is. The patient is on multiple drugs. Clozapine 100 mg at bedtime and Latuda 80 mg once a day. It can be resumed once she is alert and stable. They are kept on hold. 7. Constipation. MiraLax as necessary. 8. Vitamin D deficiency. Continue ergocalciferol. 9. Deep venous thrombosis prophylaxis, Lovenox 40 mg subcutaneous daily. JOB# [id number] VSIra/NTS
--- NOTE | 2017-01-10 08:52 | XRay Report ---
Single view chest: Compared to 01/09/17. History: Followup of respiratory failure. Findings: One cardiomegaly. Trachea is midline. Tip of endotracheal tube in normal position. No consolidation or pleural effusion. Impression: No acute cardiopulmonary findings.
--- NOTE | 2017-01-10 08:58 | XRay Report ---
Flatplate of abdomen: History: Dobbhoff placement. Findings: Tip of the Dobbhoff feeding tube is in the fundus of the stomach. The distal part of the Dobbhoff feeding tube is coiled up in the stomach. Should be withdrawn approximately 6-7 cm. No bowel distention. Impression: Findings as detailed above.
[2017-01-10] MEDS ORDERED: XARELTO PO SCH (10:00)
[2017-01-10] MEDS ORDERED: PROTONIX PO SCH (10:00)
[2017-01-10] MEDS: NACL 0.9% 1000 ML 1,000 ML IV SCH (10:25)
[2017-01-10] MEDS: LOVENOX SUB-Q SCH ×2 (10:25→22:20)
[2017-01-10] MEDS: FERGON PO SCH (10:29)
--- NOTE | 2017-01-10 10:29 | Progress Note ---
Subjective Date of service: 01/10/17 (Pt awake, following commands, VSS. No acute issues noted. RT at beside placing pt to PS, beginning to wean pt off vent. Will follow up.) Objective - Constitutional Vitals: Vital Signs - 12hr 01/10/17 01/10/17 01/10/17 00:30 04:52 08:00 Temperature 99.3 F Pulse Rate 84 82 Respiratory Rate Blood Pressure 112/38 121/45 O2 Sat by Pulse 99 99 Oximetry 01/10/17 09:55 Temperature Pulse Rate 100 H Respiratory 18 Rate Blood Pressure 140/53 O2 Sat by Pulse 99 Oximetry - Labs CBC & Chem 7: 01/10/17 03:59 01/10/17 03:59 Labs: Abnormal lab results 01/09/17 01/09/17 01/09/17 Range/Units 11:52 12:36 14:39 MCH (28-32) pg Plt Count (140-440) K/mm3 Lymph % (Auto) (13.4-35.0) % Lymph # (1.2-5.4) K/mm3 Seg Neutrophils % (40.0-70.0) % POC ABG pH 7.261 L 7.340 L (7.35-7.45) POC ABG pCO2 50.0 H (35-45) POC ABG pO2 162 H 74 L (80-105) Carbon Dioxide (22-30) mmol/L Glucose (65-100) mg/dL POC Glucose 132 H (70-105) Calcium (8.4-10.2) mg/dL Total Protein (6.3-8.2) g/dL Albumin (3.9-5) g/dL 01/09/17 01/09/17 01/09/17 Range/Units 14:48 14:48 21:19 MCH 27 L (28-32) pg Plt Count 127 L (140-440) K/mm3 Lymph % (Auto) 8.2 L (13.4-35.0) % Lymph # 0.6 L (1.2-5.4) K/mm3 Seg Neutrophils % 87.5 H (40.0-70.0) % POC ABG pH 7.256 L (7.35-7.45) POC ABG pCO2 50.0 H (35-45) POC ABG pO2 118 H (80-105) Carbon Dioxide 20 L (22-30) mmol/L Glucose 154 H (65-100) mg/dL POC Glucose (70-105) Calcium 8.2 L (8.4-10.2) mg/dL Total Protein 6.1 L (6.3-8.2) g/dL Albumin 3.3 L (3.9-5) g/dL 01/10/17 01/10/17 Range/Units 03:59 04:53 MCH (28-32) pg Plt Count (140-440) K/mm3 Lymph % (Auto) (13.4-35.0) % Lymph # (1.2-5.4) K/mm3 Seg Neutrophils % (40.0-70.0) % POC ABG pH 7.339 L (7.35-7.45) POC ABG pCO2 (35-45) POC ABG pO2 (80-105) Carbon Dioxide 21 L (22-30) mmol/L Glucose 119 H (65-100) mg/dL POC Glucose (70-105) Calcium 7.9 L (8.4-10.2) mg/dL Total Protein (6.3-8.2) g/dL Albumin (3.9-5) g/dL
[2017-01-10] MEDS: PROTONIX IV SCH (11:53)
--- NOTE | 2017-01-10 13:15 | Progress Note ---
Assessment and Plan - Patient Problems (1) Acute respiratory failure with hypoxia and hypercapnia Current Visit: Yes Status: Acute Plan to address problem: - tolerating PSV better - taking size #7 ETT into consideration will extubate if passes SBT at 14/5 - continue aspiration precautions / VAP bundles - prn bronchodilators (2) Total knee replacement status Current Visit: Yes Status: Acute Qualifiers: Laterality: L Plan to address problem: - no complications - seen by surgeon (3) Obesity Current Visit: Yes Status: Acute Qualifiers: Obesity type: O Obesity severity: O Plan to address problem: - weight loss counselled - consider outpatient PSG - prn BIPAP qhs (4) Altered mental status Current Visit: Yes Status: Acute Qualifiers: Altered mental status type: A Coma depth: C Coma timing: C Plan to address problem: - improved - suspect it's the constellation of her age, intra and kip-operation analgesia/ sedation/anesthesia that combined to make her altered with resultant element of hypoventilation - doing much better now and no acute indication for neuro-imaging (5) Discharge planning issues Current Visit: Yes Status: Acute Plan to address problem: - she is critically ill on life sustaining interventions including MVS andat high risk for further deterioration including ....if she passes SBT and is extubated will watch overnight in ICU re: acidosis and hypoventilation risk ...33' CCT Subjective Date of service: 01/10/17 Principal diagnosis: Acute Respiratory Failure on MVSl s/p left TKR; Obesity Interval history: Seen and examined at bedside; 24 hour events reviewed; nursing and respiratory care staff consulted; no adverse overnight events reported to me; son in room; on PSV at 14/5 and tolerating well so far; more alert; denies acute chest pains ; no N/V/F/C Objective Vital Signs - 12hr 01/10/17 01/10/17 01/10/17 02:40 02:50 03:00 Temperature Pulse Rate 85 83 81 Respiratory 12 11 L 12 Rate Blood Pressure 115/40 115/40 115/39 O2 Sat by Pulse 99 99 98 Oximetry 01/10/17 01/10/17 01/10/17 03:10 03:20 03:30 Temperature Pulse Rate 83 80 81 Respiratory 11 L 12 11 L Rate Blood Pressure 115/39 115/39 114/36 O2 Sat by Pulse 99 99 98 Oximetry 02/24/17 02/24/17 02/24/17 03:40 03:50 04:00 Temperature Pulse Rate 81 81 83 Respiratory 12 12 13 Rate Blood Pressure 114/36 114/36 121/42 O2 Sat by Pulse 100 100 99 Oximetry 01/10/17 01/10/17 01/10/17 04:10 04:20 04:30 Temperature Pulse Rate 81 81 Respiratory 11 L 12 Rate Blood Pressure 114/36 114/36 121/45 O2 Sat by Pulse 100 100 98 Oximetry 01/10/17 01/10/17 01/10/17 04:40 04:50 04:52 Temperature Pulse Rate 83 82 82 Respiratory 11 L 12 Rate Blood Pressure 121/45 121/45 121/45 O2 Sat by Pulse 100 100 99 Oximetry 01/10/17 01/10/17 01/10/17 05:00 05:10 05:20 Temperature Pulse Rate 82 79 97 H Respiratory 12 12 15 Rate Blood Pressure 122/41 122/41 122/41 O2 Sat by Pulse 99 100 100 Oximetry 01/10/17 01/10/17 01/10/17 05:30 05:40 05:50 Temperature Pulse Rate 87 84 87 Respiratory 12 12 12 Rate Blood Pressure 125/39 125/39 125/39 O2 Sat by Pulse 99 100 99 Oximetry 01/10/17 01/10/17 01/10/17 06:00 06:10 06:20 Temperature Pulse Rate 80 82 81 Respiratory 12 12 12 Rate Blood Pressure 113/42 113/42 113/42 O2 Sat by Pulse 99 100 100 Oximetry 01/10/17 01/10/17 01/10/17 06:30 06:40 06:50 Temperature Pulse Rate 80 78 82 Respiratory 14 12 11 L Rate Blood Pressure 115/39 115/39 115/39 O2 Sat by Pulse 97 99 99 Oximetry 01/10/17 01/10/17 01/10/17 07:00 07:10 07:20 Temperature Pulse Rate 84 79 82 Respiratory 12 12 12 Rate Blood Pressure 123/41 123/41 123/41 O2 Sat by Pulse 98 100 100 Oximetry 01/10/17 01/10/17 01/10/17 07:30 07:40 07:50 Temperature Pulse Rate 79 80 79 Respiratory 12 12 14 Rate Blood Pressure 117/38 117/38 117/38 O2 Sat by Pulse 99 100 100 Oximetry 01/10/17 01/10/17 01/10/17 08:00 08:10 08:20 Temperature 99.3 F Pulse Rate 93 H 94 H 90 Respiratory 18 12 12 Rate Blood Pressure 131/62 131/62 131/62 O2 Sat by Pulse 100 100 99 Oximetry 01/10/17 01/10/17 01/10/17 08:30 08:40 08:50 Temperature Pulse Rate 85 82 82 Respiratory 14 14 14 Rate Blood Pressure 123/40 131/62 131/62 O2 Sat by Pulse 98 99 100 Oximetry 01/10/17 01/10/17 01/10/17 09:00 09:10 09:20 Temperature Pulse Rate 80 78 85 Respiratory 12 13 15 Rate Blood Pressure 119/37 119/37 119/37 O2 Sat by Pulse 99 100 99 Oximetry 01/10/17 01/10/17 01/10/17 09:30 09:40 09:50 Temperature Pulse Rate 79 86 83 Respiratory 13 15 15 Rate Blood Pressure 115/38 115/38 115/38 O2 Sat by Pulse 99 99 99 Oximetry 01/10/17 01/10/17 01/10/17 09:55 10:00 10:10 Temperature Pulse Rate 100 H 101 H 98 H Respiratory 18 18 13 Rate Blood Pressure 140/53 140/53 140/53 O2 Sat by Pulse 99 99 99 Oximetry 01/10/17 01/10/17 01/10/17 10:20 10:30 10:40 Temperature Pulse Rate 97 H 92 H 90 Respiratory 13 11 L 11 L Rate Blood Pressure 140/53 125/45 125/45 O2 Sat by Pulse 97 98 99 Oximetry 01/10/17 10:50 Temperature Pulse Rate 91 H Respiratory 11 L Rate Blood Pressure 125/45 O2 Sat by Pulse 100 Oximetry Constitutional: no acute distress, alert Eyes: non-icteric ENT: oropharynx moist Neck: supple, no lymphadenopathy Effort: normal Ascultation: Bilateral: clear Cardiovascular: regular rate and rhythm Gastrointestinal: normoactive bowel sounds, soft, non-tender, non-distended Integumentary: normal Extremities: no cyanosis, pulses normal, no ischemia or petechiae, edema ( slight in left leg) Neurologic: normal mental status, non-focal exam, pupils equal and round, motor strength normal and Psychiatric: mood appropriate, affect normal CBC and BMP: 01/10/17 03:59 01/10/17 03:59 ABG, PT/INR, D-dimer: ABG POC ABG pH 7.339 (7.35-7.45) L 01/10/17 04:53 POC ABG pCO2 42.2 (35-45) 01/10/17 04:53 POC ABG pO2 88 (80-105) 01/10/17 04:53 POC ABG HCO3 22.7 01/10/17 04:53 POC ABG Total CO2 24 01/10/17 04:53 POC ABG O2 Sat 96 01/10/17 04:53 PT/INR, D-dimer PT 13.8 Sec. (12.2-14.9) 01/10/17 03:59 INR 1.07 (0.87-1.13) 01/10/17 03:59 Abnormal lab findings: Abnormal Labs 01/09/17 01/09/17 01/09/17 06:54 11:52 12:36 MCH Plt Count Lymph % (Auto) Lymph # Seg Neutrophils % POC ABG pH 7.261 L POC ABG pCO2 50.0 H POC ABG pO2 162 H Carbon Dioxide Glucose POC Glucose 110 H 132 H Calcium Total Protein Albumin 01/09/17 01/09/17 01/09/17 14:39 14:48 14:48 MCH 27 L Plt Count 127 L Lymph % (Auto) 8.2 L Lymph # 0.6 L Seg Neutrophils % 87.5 H POC ABG pH 7.340 L POC ABG pCO2 POC ABG pO2 74 L Carbon Dioxide 20 L Glucose 154 H POC Glucose Calcium 8.2 L Total Protein 6.1 L Albumin 3.3 L 01/09/17 01/10/17 01/10/17 21:19 03:59 04:53 MCH Plt Count Lymph % (Auto) Lymph # Seg Neutrophils % POC ABG pH 7.256 L 7.339 L POC ABG pCO2 50.0 H POC ABG pO2 118 H Carbon Dioxide 21 L Glucose 119 H POC Glucose Calcium 7.9 L Total Protein Albumin Chest x-ray: image reviewed
--- NOTE | 2017-01-10 13:30 | Progress Note ---
Subjective Date of service: 01/10/17 Interval history: patient doing fine, responding to commands, stable, dressing dry, patient taught to do ankle pumps and pushing knee down towards the bed. calf soft NT PATIENT SIGNIFICANTLY IMPROVED FROM YESTERDAY Objective Vital signs: Vital Signs - 12hr 01/10/17 01/10/17 01/10/17 02:40 02:50 03:00 Temperature Pulse Rate 85 83 81 Respiratory 12 11 L 12 Rate Blood Pressure 115/40 115/40 115/39 O2 Sat by Pulse 99 99 98 Oximetry 01/10/17 01/10/17 01/10/17 03:10 03:20 03:30 Temperature Pulse Rate 83 80 81 Respiratory 11 L 12 11 L Rate Blood Pressure 115/39 115/39 114/36 O2 Sat by Pulse 99 99 98 Oximetry 01/10/17 01/10/17 01/10/17 03:40 03:50 04:00 Temperature Pulse Rate 81 81 83 Respiratory 12 12 13 Rate Blood Pressure 114/36 114/36 121/42 O2 Sat by Pulse 100 100 99 Oximetry 01/10/17 01/10/17 01/10/17 04:10 04:20 04:30 Temperature Pulse Rate 81 81 Respiratory 11 L 12 Rate Blood Pressure 114/36 114/36 121/45 O2 Sat by Pulse 100 100 98 Oximetry 01/10/17 01/10/17 01/10/17 04:40 04:50 04:52 Temperature Pulse Rate 83 82 82 Respiratory 11 L 12 Rate Blood Pressure 121/45 121/45 121/45 O2 Sat by Pulse 100 100 99 Oximetry 01/10/17 01/10/17 01/10/17 05:00 05:10 05:20 Temperature Pulse Rate 82 79 97 H Respiratory 12 12 15 Rate Blood Pressure 122/41 122/41 122/41 O2 Sat by Pulse 99 100 100 Oximetry 01/10/17 01/10/17 01/10/17 05:30 05:40 05:50 Temperature Pulse Rate 87 84 87 Respiratory 12 12 12 Rate Blood Pressure 125/39 125/39 125/39 O2 Sat by Pulse 99 100 99 Oximetry 01/10/17 01/10/17 01/10/17 06:00 06:10 06:20 Temperature Pulse Rate 80 82 81 Respiratory 12 12 12 Rate Blood Pressure 113/42 113/42 113/42 O2 Sat by Pulse 99 100 100 Oximetry 01/10/17 01/10/17 01/10/17 06:30 06:40 06:50 Temperature Pulse Rate 80 78 82 Respiratory 14 12 11 L Rate Blood Pressure 115/39 115/39 115/39 O2 Sat by Pulse 97 99 99 Oximetry 01/10/17 01/10/17 01/10/17 07:00 07:10 07:20 Temperature Pulse Rate 84 79 82 Respiratory 12 12 12 Rate Blood Pressure 123/41 123/41 123/41 O2 Sat by Pulse 98 100 100 Oximetry 01/10/17 01/10/17 01/10/17 07:30 07:40 07:50 Temperature Pulse Rate 79 80 79 Respiratory 12 12 14 Rate Blood Pressure 117/38 117/38 117/38 O2 Sat by Pulse 99 100 100 Oximetry 01/10/17 01/10/17 01/10/17 08:00 08:10 08:20 Temperature 99.3 F Pulse Rate 93 H 94 H 90 Respiratory 18 12 12 Rate Blood Pressure 131/62 131/62 131/62 O2 Sat by Pulse 100 100 99 Oximetry 01/10/17 01/10/17 01/10/17 08:30 08:40 08:50 Temperature Pulse Rate 85 82 82 Respiratory 14 14 14 Rate Blood Pressure 123/40 131/62 131/62 O2 Sat by Pulse 98 99 100 Oximetry 01/10/17 01/10/17 01/10/17 09:00 09:10 09:20 Temperature Pulse Rate 80 78 85 Respiratory 12 13 15 Rate Blood Pressure 119/37 119/37 119/37 O2 Sat by Pulse 99 100 99 Oximetry 01/10/17 01/10/17 01/10/17 09:30 09:40 09:50 Temperature Pulse Rate 79 86 83 Respiratory 13 15 15 Rate Blood Pressure 115/38 115/38 115/38 O2 Sat by Pulse 99 99 99 Oximetry 01/10/17 01/10/17 01/10/17 09:55 10:00 10:10 Temperature Pulse Rate 100 H 101 H 98 H Respiratory 18 18 13 Rate Blood Pressure 140/53 140/53 140/53 O2 Sat by Pulse 99 99 99 Oximetry 01/10/17 01/10/17 01/10/17 10:20 10:30 10:40 Temperature Pulse Rate 97 H 92 H 90 Respiratory 13 11 L 11 L Rate Blood Pressure 140/53 125/45 125/45 O2 Sat by Pulse 97 98 99 Oximetry 01/10/17 10:50 Temperature Pulse Rate 91 H Respiratory 11 L Rate Blood Pressure 125/45 O2 Sat by Pulse 100 Oximetry - Labs CBC & BMP: 01/10/17 03:59 01/10/17 03:59 Labs: Abnormal lab results 01/09/17 01/09/17 01/09/17 Range/Units 14:39 14:48 14:48 MCH 27 L (28-32) pg Plt Count 127 L (140-440) K/mm3 Lymph % (Auto) 8.2 L (13.4-35.0) % Lymph # 0.6 L (1.2-5.4) K/mm3 Seg Neutrophils % 87.5 H (40.0-70.0) % POC ABG pH 7.340 L (7.35-7.45) POC ABG pCO2 (35-45) POC ABG pO2 74 L (80-105) Carbon Dioxide 20 L (22-30) mmol/L Glucose 154 H (65-100) mg/dL Calcium 8.2 L (8.4-10.2) mg/dL Total Protein 6.1 L (6.3-8.2) g/dL Albumin 3.3 L (3.9-5) g/dL 01/09/17 01/10/17 01/10/17 Range/Units 21:19 03:59 04:53 MCH (28-32) pg Plt Count (140-440) K/mm3 Lymph % (Auto) (13.4-35.0) % Lymph # (1.2-5.4) K/mm3 Seg Neutrophils % (40.0-70.0) % POC ABG pH 7.256 L 7.339 L (7.35-7.45) POC ABG pCO2 50.0 H (35-45) POC ABG pO2 118 H (80-105) Carbon Dioxide 21 L (22-30) mmol/L Glucose 119 H (65-100) mg/dL Calcium 7.9 L (8.4-10.2) mg/dL Total Protein (6.3-8.2) g/dL Albumin (3.9-5) g/dL
[2017-01-10 14:08] LABS: ISTAT Base Excess -3; ISTAT HCO3 22.8; ISTAT PCO2 40.1 (35-45); ISTAT PH 7.363 (7.35-7.45); ISTAT PO2 113 (80-105); ISTAT SO2 98; ISTAT TCO2 24
--- NOTE | 2017-01-10 16:07 | Progress Note ---
Assessment and Plan Assessment and plan: Patient's an 81-year-old female who is status post total knee arthroplasty with uneventful surgery but was difficult to really bruits from the vent and transferred to the ICU for further monitoring. 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 - - History Interval history: Patient seen and examined today remains intubated. No sedation. Awake. family member in the room. Hospitalist Physical - Physical exam Narrative exam: VITAL SIGNS: Reviewed. GENERAL: The patient appeared well nourished and normally developed. Intubated Vital signs as documented. HEAD: No signs of head trauma. EYES: Pupils are equal. Extraocular motions intact. EARS: Hearing grossly intact. MOUTH: Oropharynx is normal. ET tube in place NECK: No adenopathy, no JVD. CHEST: Chest with clear breath sounds bilaterally. No wheezes, rales, or rhonchi. CARDIAC: Regular rate and rhythm. S1 and S2, without murmurs, gallops, or rubs. VASCULAR: No Edema. Peripheral pulses normal and equal in all extremities. ABDOMEN: Soft, without detectable tenderness. No sign of distention. No rebound or guarding, and no masses palpated. Bowel Sounds normal. MUSCULOSKELETAL: Good range of motion of all major joints. Extremities without clubbing, cyanosis or edema. NEUROLOGIC EXAM: Alert and oriented x 3. No focal sensory or strength deficits. Speech normal. Follows commands. PSYCHIATRIC: Mood normal. SKIN: No rash or lesions. - Constitutional Vitals: Temp Pulse Resp BP Pulse Ox 99.8 F H 100 H 12 133/52 97 01/10/17 12:00 01/10/17 14:40 01/10/17 14:40 01/10/17 14:40 01/10/17 14:40 Results - Labs CBC & Chem 7: 01/10/17 03:59 01/10/17 03:59 Labs: Laboratory Last Values WBC 6.9 K/mm3 (4.5-11.0) 01/09/17 14:48 RBC 4.03 M/mm3 (3.65-5.03) 01/09/17 14:48 Hgb 10.6 gm/dl (10.1-14.3) 01/10/17 03:59 Hct 33.5 % (30.3-42.9) 01/10/17 03:59 MCV 86 fl (79-97) 01/09/17 14:48 MCH 27 pg (28-32) L 01/09/17 14:48 MCHC 32 % (30-34) 01/09/17 14:48 RDW 14.3 % (13.2-15.2) 01/09/17 14:48 Plt Count 127 K/mm3 (140-440) L 01/09/17 14:48 Lymph % (Auto) 8.2 % (13.4-35.0) L 01/09/17 14:48 Morgan % (Auto) 2.8 % (0.0-7.3) 01/09/17 14:48 Eos % (Auto) 1.1 % (0.0-4.3) 01/09/17 14:48 Baso % (Auto) 0.4 % (0.0-1.8) 01/09/17 14:48 Lymph # 0.6 K/mm3 (1.2-5.4) L 01/09/17 14:48 Morgan # 0.2 K/mm3 (0.0-0.8) 01/09/17 14:48 Eos # 0.1 K/mm3 (0.0-0.4) 01/09/17 14:48 Baso # 0.0 K/mm3 (0.0-0.1) 01/09/17 14:48 Seg Neutrophils % 87.5 % (40.0-70.0) H 01/09/17 14:48 Seg Neutrophils # 6.0 K/mm3 (1.8-7.7) 01/09/17 14:48 PT 13.8 Sec. (12.2-14.9) 01/10/17 03:59 INR 1.07 (0.87-1.13) 01/10/17 03:59 POC ABG pH 7.363 (7.35-7.45) 01/10/17 13:59 POC ABG pCO2 40.1 (35-45) 01/10/17 13:59 POC ABG pO2 113 (80-105) H 01/10/17 13:59 POC ABG HCO3 22.8 01/10/17 13:59 POC ABG Total CO2 24 01/10/17 13:59 POC ABG O2 Sat 98 01/10/17 13:59 POC ABG Base Excess -3 01/10/17 13:59 FiO2 35 % 01/10/17 13:59 Sodium 142 mmol/L (137-145) 01/10/17 03:59 Potassium 4.3 mmol/L (3.6-5.0) 01/10/17 03:59 Chloride 106.5 mmol/L (98-107) 01/10/17 03:59 Carbon Dioxide 21 mmol/L (22-30) L 01/10/17 03:59 Anion Gap 19 mmol/L 01/10/17 03:59 BUN 14 mg/dL (7-17) 01/10/17 03:59 Creatinine 0.9 mg/dL (0.7-1.2) 01/10/17 03:59 Estimated GFR > 60 ml/min 01/10/17 03:59 BUN/Creatinine Ratio 15.55 % 01/10/17 03:59 Glucose 119 mg/dL (65-100) H 01/10/17 03:59 POC Glucose 132 (70-105) H 01/09/17 11:52 Calcium 7.9 mg/dL (8.4-10.2) L 01/10/17 03:59 Phosphorus 3.3 mg/dL (2.5-4.5) 01/09/17 14:48 Magnesium 1.7 mg/dL (1.7-2.3) 01/09/17 14:48 Total Bilirubin 0.2 mg/dL (0.1-1.2) 01/09/17 14:48 AST 16 units/L (5-40) 01/09/17 14:48 ALT 10 units/L (7-56) 01/09/17 14:48 Alkaline Phosphatase 113 units/L (35-129) 01/09/17 14:48 Total Protein 6.1 g/dL (6.3-8.2) L 01/09/17 14:48 Albumin 3.3 g/dL (3.9-5) L 01/09/17 14:48 Albumin/Globulin Ratio 1.2 % 01/09/17 14:48 Blood Type O POSITIVE 01/09/17 06:45 Antibody Screen Negative 01/09/17 06:45
[2017-01-10] MEDS: SUBLIMAZE IV PRN ×2 (20:48→23:59)
[2017-01-10 21:47] LABS: ISTAT Base Excess -1; ISTAT HCO3 23.5; ISTAT PCO2 38.5 (35-45); ISTAT PH 7.393 (7.35-7.45); ISTAT PO2 28 (80-105); ISTAT SO2 53; ISTAT TCO2 25
[2017-01-10 21:47] LABS: ISTAT Base Excess -1; ISTAT HCO3 22.9; ISTAT PCO2 34.8 (35-45); ISTAT PH 7.427 (7.35-7.45); ISTAT PO2 107 (80-105); ISTAT SO2 98; ISTAT TCO2 24
[2017-01-11] MEDS: SUBLIMAZE IV PRN (04:33)
[2017-01-11] MEDS: ZOSYN/NS 4.5GM/100ML 4.5 GM/100 ML VIAL IV SCH ×3 (06:00→21:13)
[2017-01-11] MEDS: FERGON PO SCH ×2 (09:40→10:00)
[2017-01-11] MEDS: PROTONIX IV SCH (09:40)
[2017-01-11] MEDS: LOVENOX SUB-Q SCH ×2 (09:42→21:34)
[2017-01-11] MEDS: VITAMIN D3 PO SCH ×2 (09:43→10:00)
--- NOTE | 2017-01-11 10:08 | Progress Note ---
Subjective Date of service: 01/11/17 Principal diagnosis: Acute Respiratory Failure on MVSl s/p left TKR; Obesity Interval history: patient alert oriented conversing well, worked with PT little bit. calf soft NT DRESSING DRY KNEE EX. TAUGHT she was keeping her knee bent and taught her to keep pillow under ankle at all times and push knee down, patient aware of risk of flexion deformity and stiffness Objective Vital signs: Vital Signs - 12hr 01/10/17 01/10/17 01/10/17 22:11 22:21 22:29 Temperature Pulse Rate 109 H 108 H 118 H Respiratory 23 22 16 Rate Blood Pressure 155/56 155/56 155/56 O2 Sat by Pulse 100 100 97 Oximetry 01/10/17 01/10/17 01/10/17 22:31 22:41 22:51 Temperature Pulse Rate 116 H 111 H 108 H Respiratory 15 22 25 H Rate Blood Pressure 155/56 155/56 155/56 O2 Sat by Pulse 99 99 100 Oximetry 01/10/17 01/10/17 01/10/17 23:00 23:11 23:21 Temperature Pulse Rate 105 H 108 H 104 H Respiratory 29 H 15 17 Rate Blood Pressure 156/60 156/60 156/60 O2 Sat by Pulse 99 100 97 Oximetry 01/10/17 01/10/17 01/10/17 23:31 23:41 23:51 Temperature Pulse Rate 106 H 105 H 105 H Respiratory 11 L 13 14 Rate Blood Pressure 156/60 156/60 156/60 O2 Sat by Pulse 100 98 99 Oximetry 01/11/17 01/11/17 01/11/17 00:00 00:11 00:21 Temperature Pulse Rate 106 H 109 H 106 H Respiratory 19 23 21 Rate Blood Pressure 136/53 136/53 136/53 O2 Sat by Pulse 98 99 99 Oximetry 01/11/17 01/11/17 01/11/17 00:31 00:41 00:50 Temperature Pulse Rate 107 H 111 H Respiratory 15 13 15 Rate Blood Pressure 136/53 136/53 136/53 O2 Sat by Pulse 100 99 99 Oximetry 01/11/17 01/11/17 01/11/17 01:00 01:11 01:21 Temperature Pulse Rate 108 H 109 H 106 H Respiratory 15 28 H 24 Rate Blood Pressure 137/66 137/66 136/53 O2 Sat by Pulse 98 98 100 Oximetry 01/11/17 01/11/17 01/11/17 01:31 01:41 01:51 Temperature Pulse Rate 107 H 107 H 106 H Respiratory 23 22 26 H Rate Blood Pressure 136/53 136/53 136/53 O2 Sat by Pulse 100 98 97 Oximetry 01/11/17 01/11/17 01/11/17 02:01 02:11 02:21 Temperature Pulse Rate 104 H 109 H 105 H Respiratory 22 18 25 H Rate Blood Pressure 156/58 156/58 156/58 O2 Sat by Pulse 98 100 98 Oximetry 01/11/17 01/11/17 01/11/17 02:31 02:41 02:51 Temperature Pulse Rate 104 H 103 H 105 H Respiratory 22 21 17 Rate Blood Pressure 137/66 137/66 137/66 O2 Sat by Pulse 97 98 100 Oximetry 01/11/17 01/11/17 01/11/17 03:01 03:11 03:21 Temperature Pulse Rate 105 H 107 H 104 H Respiratory 20 10 L 14 Rate Blood Pressure 178/67 178/67 178/67 O2 Sat by Pulse 97 100 100 Oximetry 01/11/17 01/11/17 01/11/17 03:31 03:41 03:51 Temperature Pulse Rate 104 H 104 H 109 H Respiratory 22 15 16 Rate Blood Pressure 178/67 178/67 178/67 O2 Sat by Pulse 100 100 99 Oximetry 01/11/17 01/11/17 01/11/17 04:01 04:11 04:21 Temperature Pulse Rate 107 H 107 H 103 H Respiratory 18 14 15 Rate Blood Pressure 161/51 161/51 161/51 O2 Sat by Pulse 99 100 100 Oximetry 01/11/17 01/11/17 01/11/17 04:31 04:41 04:51 Temperature Pulse Rate 105 H 108 H 103 H Respiratory 18 20 20 Rate Blood Pressure 161/51 161/51 161/51 O2 Sat by Pulse 98 93 100 Oximetry 01/11/17 01/11/17 01/11/17 05:00 05:11 05:21 Temperature Pulse Rate 102 H 105 H 106 H Respiratory 18 18 23 Rate Blood Pressure 183/60 183/60 165/54 O2 Sat by Pulse 100 99 100 Oximetry 01/11/17 01/11/17 01/11/17 05:31 05:41 05:51 Temperature Pulse Rate 122 H 114 H 110 H Respiratory 16 21 23 Rate Blood Pressure 165/54 165/54 165/54 O2 Sat by Pulse 99 99 98 Oximetry 01/11/17 01/11/17 01/11/17 06:00 06:11 06:21 Temperature Pulse Rate 105 H 106 H 104 H Respiratory 17 26 H 24 Rate Blood Pressure 181/76 181/76 181/76 O2 Sat by Pulse 98 99 100 Oximetry 01/11/17 01/11/17 01/11/17 06:31 06:41 06:51 Temperature Pulse Rate 105 H 105 H 107 H Respiratory 22 21 24 Rate Blood Pressure 181/76 181/76 181/76 O2 Sat by Pulse 100 100 98 Oximetry 01/11/17 01/11/17 01/11/17 07:01 07:11 08:00 Temperature 100.1 F H Pulse Rate 105 H 105 H Respiratory 20 22 Rate Blood Pressure 197/61 169/53 O2 Sat by Pulse 100 100 Oximetry - Labs CBC & BMP: 01/10/17 03:59 01/10/17 03:59 Labs: Abnormal lab results 01/10/17 01/10/17 01/10/17 Range/Units 13:59 21:20 21:43 POC ABG pCO2 34.8 L (35-45) POC ABG pO2 113 H 28 L 107 H (80-105)
--- NOTE | 2017-01-11 10:12 | XRay Report ---
AP chest History: Followup respiratory failure. Findings: The patient has been extubated since yesterday's exam. Heart size is stable at the upper limits of normal. The lungs are clear. No acute cardiopulmonary process is appreciated. Impression: Borderline heart size. Lungs clear.
--- NOTE | 2017-01-11 13:11 | Progress Note ---
Assessment and Plan - Patient Problems (1) Acute respiratory failure with hypoxia and hypercapnia Current Visit: Yes Status: Acute Plan to address problem: - extubated - continue aspiration precautions - prn bronchodilators (2) Total knee replacement status Current Visit: Yes Status: Acute Qualifiers: Laterality: L Plan to address problem: - no complications - seen by surgeon (3) Obesity Current Visit: Yes Status: Acute Qualifiers: Obesity type: O Obesity severity: O Plan to address problem: - weight loss counselled - consider outpatient PSG - prn BIPAP qhs (4) Altered mental status Current Visit: Yes Status: Acute Qualifiers: Altered mental status type: A Coma depth: C Coma timing: C Plan to address problem: - resolved - suspect it's the constellation of her age, intra and kip-operation analgesia/ sedation/anesthesia that combined to make her altered with resultant element of hypoventilation - doing much better now and no acute indication for neuro-imaging (5) Discharge planning issues Current Visit: Yes Status: Acute Plan to address problem: - transfer to medical floor Subjective Date of service: 01/11/17 Principal diagnosis: Acute Respiratory Failure on MVSl s/p left TKR; Obesity Interval history: Seen and examined at bedside; 24 hour events reviewed; nursing and respiratory care staff consulted; no adverse overnight events reported to me; resting peacefully and sitting up in bed; denies acute chest pains or increased SOB; no emesis or overt aspiration; on 2L NC Objective Vital Signs - 12hr 01/11/17 01/11/17 01/11/17 01:11 01:21 01:31 Temperature Pulse Rate 109 H 106 H 107 H Respiratory 28 H 24 23 Rate Blood Pressure 137/66 136/53 136/53 O2 Sat by Pulse 98 100 100 Oximetry 01/11/17 01/11/17 01/11/17 01:41 01:51 02:01 Temperature Pulse Rate 107 H 106 H 104 H Respiratory 22 26 H 22 Rate Blood Pressure 136/53 136/53 156/58 O2 Sat by Pulse 98 97 98 Oximetry 01/11/17 01/11/17 01/11/17 02:11 02:21 02:31 Temperature Pulse Rate 109 H 105 H 104 H Respiratory 18 25 H 22 Rate Blood Pressure 156/58 156/58 137/66 O2 Sat by Pulse 100 98 97 Oximetry 01/11/17 01/11/17 01/11/17 02:41 02:51 03:01 Temperature Pulse Rate 103 H 105 H 105 H Respiratory 21 17 20 Rate Blood Pressure 137/66 137/66 178/67 O2 Sat by Pulse 98 100 97 Oximetry 01/11/17 01/11/17 01/11/17 03:11 03:21 03:31 Temperature Pulse Rate 107 H 104 H 104 H Respiratory 10 L 14 22 Rate Blood Pressure 178/67 178/67 178/67 O2 Sat by Pulse 100 100 100 Oximetry 01/11/17 01/11/17 01/11/17 03:41 03:51 04:01 Temperature Pulse Rate 104 H 109 H 107 H Respiratory 15 16 18 Rate Blood Pressure 178/67 178/67 161/51 O2 Sat by Pulse 100 99 99 Oximetry 01/11/17 01/11/17 01/11/17 04:11 04:21 04:31 Temperature Pulse Rate 107 H 103 H 105 H Respiratory 14 15 18 Rate Blood Pressure 161/51 161/51 161/51 O2 Sat by Pulse 100 100 98 Oximetry 01/11/17 01/11/17 01/11/17 04:41 04:51 05:00 Temperature Pulse Rate 108 H 103 H 102 H Respiratory 20 20 18 Rate Blood Pressure 161/51 161/51 183/60 O2 Sat by Pulse 93 100 100 Oximetry 01/11/17 01/11/17 01/11/17 05:11 05:21 05:31 Temperature Pulse Rate 105 H 106 H 122 H Respiratory 18 23 16 Rate Blood Pressure 183/60 165/54 165/54 O2 Sat by Pulse 99 100 99 Oximetry 01/11/17 01/11/17 01/11/17 05:41 05:51 06:00 Temperature Pulse Rate 114 H 110 H 105 H Respiratory 21 23 17 Rate Blood Pressure 165/54 165/54 181/76 O2 Sat by Pulse 99 98 98 Oximetry 01/11/17 01/11/17 01/11/17 06:11 06:21 06:31 Temperature Pulse Rate 106 H 104 H 105 H Respiratory 26 H 24 22 Rate Blood Pressure 181/76 181/76 181/76 O2 Sat by Pulse 99 100 100 Oximetry 01/11/17 01/11/17 01/11/17 06:41 06:51 07:01 Temperature Pulse Rate 105 H 107 H 105 H Respiratory 21 24 20 Rate Blood Pressure 181/76 181/76 197/61 O2 Sat by Pulse 100 98 100 Oximetry 01/11/17 01/11/17 01/11/17 07:11 07:21 07:31 Temperature Pulse Rate 105 H 105 H 105 H Respiratory 22 20 23 Rate Blood Pressure 169/53 169/53 169/53 O2 Sat by Pulse 100 100 100 Oximetry 01/11/17 01/11/17 01/11/17 07:41 07:51 08:00 Temperature 100.1 F H Pulse Rate 106 H 102 H 101 H Respiratory 24 22 21 Rate Blood Pressure 169/53 169/53 166/61 O2 Sat by Pulse 100 100 100 Oximetry 01/11/17 01/11/17 01/11/17 08:11 08:21 08:31 Temperature Pulse Rate 103 H 104 H 104 H Respiratory 19 22 21 Rate Blood Pressure 166/61 166/61 166/61 O2 Sat by Pulse 100 100 99 Oximetry 01/11/17 01/11/17 01/11/17 08:41 08:51 09:00 Temperature Pulse Rate 104 H 106 H 105 H Respiratory 21 21 24 Rate Blood Pressure 166/61 166/61 165/63 O2 Sat by Pulse 100 100 99 Oximetry 01/11/17 01/11/17 01/11/17 09:11 09:21 09:31 Temperature Pulse Rate 104 H 104 H 106 H Respiratory 22 24 22 Rate Blood Pressure 165/63 165/63 165/63 O2 Sat by Pulse 100 99 100 Oximetry 01/11/17 01/11/17 01/11/17 09:41 09:51 10:00 Temperature Pulse Rate 108 H 124 H Respiratory 17 20 Rate Blood Pressure 165/63 165/63 O2 Sat by Pulse 99 100 99 Oximetry 01/11/17 01/11/17 01/11/17 10:01 10:11 10:21 Temperature Pulse Rate 113 H 110 H 109 H Respiratory 18 12 11 L Rate Blood Pressure 163/99 163/99 163/99 O2 Sat by Pulse 100 99 98 Oximetry 01/11/17 01/11/17 01/11/17 10:31 10:41 10:51 Temperature Pulse Rate 112 H 109 H 106 H Respiratory 15 22 12 Rate Blood Pressure 163/99 163/99 163/99 O2 Sat by Pulse 99 98 98 Oximetry 01/11/17 01/11/17 01/11/17 11:00 11:11 11:21 Temperature Pulse Rate 107 H 107 H 105 H Respiratory 36 H 24 19 Rate Blood Pressure 165/60 165/60 165/60 O2 Sat by Pulse 98 100 99 Oximetry 01/11/17 01/11/17 11:31 12:00 Temperature 98.0 F Pulse Rate 110 H Respiratory 12 Rate Blood Pressure 165/60 O2 Sat by Pulse 100 Oximetry Constitutional: no acute distress, alert Eyes: non-icteric ENT: oropharynx moist Neck: supple, no lymphadenopathy Effort: normal Ascultation: Bilateral: rhonchi Cardiovascular: regular rate and rhythm Gastrointestinal: normoactive bowel sounds, soft, non-tender, non-distended Integumentary: normal Extremities: no cyanosis, pulses normal, no ischemia or petechiae Neurologic: normal mental status, non-focal exam, pupils equal and round, motor strength normal and Psychiatric: mood appropriate, affect normal CBC and BMP: 01/10/17 03:59 01/10/17 03:59 ABG, PT/INR, D-dimer: ABG POC ABG pH 7.427 (7.35-7.45) 01/10/17 21:43 POC ABG pCO2 34.8 (35-45) L 01/10/17 21:43 POC ABG pO2 107 (80-105) H 01/10/17 21:43 POC ABG HCO3 22.9 01/10/17 21:43 POC ABG Total CO2 24 01/10/17 21:43 POC ABG O2 Sat 98 01/10/17 21:43 PT/INR, D-dimer PT 13.8 Sec. (12.2-14.9) 01/10/17 03:59 INR 1.07 (0.87-1.13) 01/10/17 03:59 Abnormal lab findings: Abnormal Labs 01/09/17 01/09/17 01/09/17 06:54 11:52 12:36 MCH Plt Count Lymph % (Auto) Lymph # Seg Neutrophils % POC ABG pH 7.261 L POC ABG pCO2 50.0 H POC ABG pO2 162 H Carbon Dioxide Glucose POC Glucose 110 H 132 H Calcium Total Protein Albumin 01/09/17 01/09/17 01/09/17 14:39 14:48 14:48 MCH 27 L Plt Count 127 L Lymph % (Auto) 8.2 L Lymph # 0.6 L Seg Neutrophils % 87.5 H POC ABG pH 7.340 L POC ABG pCO2 POC ABG pO2 74 L Carbon Dioxide 20 L Glucose 154 H POC Glucose Calcium 8.2 L Total Protein 6.1 L Albumin 3.3 L 01/09/17 01/10/17 01/10/17 21:19 03:59 04:53 MCH Plt Count Lymph % (Auto) Lymph # Seg Neutrophils % POC ABG pH 7.256 L 7.339 L POC ABG pCO2 50.0 H POC ABG pO2 118 H Carbon Dioxide 21 L Glucose 119 H POC Glucose Calcium 7.9 L Total Protein Albumin 01/10/17 01/10/17 01/10/17 13:59 21:20 21:43 MCH Plt Count Lymph % (Auto) Lymph # Seg Neutrophils % POC ABG pH POC ABG pCO2 34.8 L POC ABG pO2 113 H 28 L 107 H Carbon Dioxide Glucose POC Glucose Calcium Total Protein Albumin Chest x-ray: image reviewed
--- NOTE | 2017-01-11 14:12 | Progress Note ---
Assessment and Plan Assessment and plan: (1) Acute respiratory failure with hypoxia and hypercapnia Patient has been successfully weaned off the vent, continue supplemental oxygen (2) left Total knee replacement status Continue postop care by orthopedic surgery (3) Obesity Calorie controlled diet (4) Altered mental status Resolved (5) Discharge planning issues Patient will be transferred to medical floor if she continues to improve, PT evaluation and likely discharged to rehabilitation Critical Care time; 35 minutes History Interval history: Patient is doing well, on 2L oxygen, no events overnight Hospitalist Physical - Physical exam Narrative exam: General: Patient appears well in no distress HEENT: MMM, EOMI cardiac: S1-S2 heard lungs: Reduced air entry abdomen: soft, nontender, nondistended bowel sounds positive extremities: no edema clubbing or cyanosis Skin: no rash or lesion Neuro: no focal deficit Psych: appropriate behavior and mood, cognition intact - Constitutional Vitals: Temp Pulse Resp BP Pulse Ox 98.0 F 110 H 12 165/60 100 01/11/17 12:00 01/11/17 11:31 01/11/17 11:31 01/11/17 11:31 01/11/17 11:31 Results - Labs CBC & Chem 7: 01/10/17 03:59 01/10/17 03:59 Labs: Laboratory Last Values WBC 6.9 K/mm3 (4.5-11.0) 01/09/17 14:48 RBC 4.03 M/mm3 (3.65-5.03) 01/09/17 14:48 Hgb 10.6 gm/dl (10.1-14.3) 01/10/17 03:59 Hct 33.5 % (30.3-42.9) 01/10/17 03:59 MCV 86 fl (79-97) 01/09/17 14:48 MCH 27 pg (28-32) L 01/09/17 14:48 MCHC 32 % (30-34) 01/09/17 14:48 RDW 14.3 % (13.2-15.2) 01/09/17 14:48 Plt Count 127 K/mm3 (140-440) L 01/09/17 14:48 Lymph % (Auto) 8.2 % (13.4-35.0) L 01/09/17 14:48 [place] % (Auto) 2.8 % (0.0-7.3) 01/09/17 14:48 Eos % (Auto) 1.1 % (0.0-4.3) 01/09/17 14:48 Baso % (Auto) 0.4 % (0.0-1.8) 01/09/17 14:48 Lymph # 0.6 K/mm3 (1.2-5.4) L 01/09/17 14:48 [place] # 0.2 K/mm3 (0.0-0.8) 01/09/17 14:48 Eos # 0.1 K/mm3 (0.0-0.4) 01/09/17 14:48 Baso # 0.0 K/mm3 (0.0-0.1) 01/09/17 14:48 Seg Neutrophils % 87.5 % (40.0-70.0) H 01/09/17 14:48 Seg Neutrophils # 6.0 K/mm3 (1.8-7.7) 01/09/17 14:48 PT 13.8 Sec. (12.2-14.9) 01/10/17 03:59 INR 1.07 (0.87-1.13) 01/10/17 03:59 POC ABG pH 7.427 (7.35-7.45) 01/10/17 21:43 POC ABG pCO2 34.8 (35-45) L 01/10/17 21:43 POC ABG pO2 107 (80-105) H 01/10/17 21:43 POC ABG HCO3 22.9 01/10/17 21:43 POC ABG Total CO2 24 01/10/17 21:43 POC ABG O2 Sat 98 01/10/17 21:43 POC ABG Base Excess -1 01/10/17 21:43 FiO2 3 % 01/10/17 21:43 Sodium 142 mmol/L (137-145) 01/10/17 03:59 Potassium 4.3 mmol/L (3.6-5.0) 01/10/17 03:59 Chloride 106.5 mmol/L (98-107) 01/10/17 03:59 Carbon Dioxide 21 mmol/L (22-30) L 01/10/17 03:59 Anion Gap 19 mmol/L 01/10/17 03:59 BUN 14 mg/dL (7-17) 01/10/17 03:59 Creatinine 0.9 mg/dL (0.7-1.2) 01/10/17 03:59 Estimated GFR > 60 ml/min 01/10/17 03:59 BUN/Creatinine Ratio 15.55 % 01/10/17 03:59 Glucose 119 mg/dL (65-100) H 01/10/17 03:59 POC Glucose 132 (70-105) H 01/09/17 11:52 Calcium 7.9 mg/dL (8.4-10.2) L 01/10/17 03:59 Phosphorus 3.3 mg/dL (2.5-4.5) 01/09/17 14:48 Magnesium 1.7 mg/dL (1.7-2.3) 01/09/17 14:48 Total Bilirubin 0.2 mg/dL (0.1-1.2) 01/09/17 14:48 AST 16 units/L (5-40) 01/09/17 14:48 ALT 10 units/L (7-56) 01/09/17 14:48 Alkaline Phosphatase 113 units/L (35-129) 01/09/17 14:48 Total Protein 6.1 g/dL (6.3-8.2) L 01/09/17 14:48 Albumin 3.3 g/dL (3.9-5) L 01/09/17 14:48 Albumin/Globulin Ratio 1.2 % 01/09/17 14:48 Blood Type O POSITIVE 01/09/17 06:45 Antibody Screen Negative 01/09/17 06:45
[2017-01-12] MEDS: ZOSYN/NS 4.5GM/100ML 4.5 GM/100 ML VIAL IV SCH (05:32)
[2017-01-12 07:54] LABS: Basophils % (Auto) 0.3 % (0.0-1.8); Eosinophils % (Auto) 2.5 % (0.0-4.3); Hematocrit 31.7 % (30.3-42.9); Hemoglobin 9.9 gm/dl (10.1-14.3); Mean Corpuscular HGB Conc 31 % (30-34); Mean Corpuscular Hemoglobin 27 pg (28-32); Mean Corpuscular Volume 87 fl (79-97); Platelet Count 116 K/mm3 (140-440); Red Blood Count 3.66 M/mm3 (3.65-5.03); Red Cell Distribution Width 14.3 % (13.2-15.2); White Blood Count 11.2 K/mm3 (4.5-11.0)
[2017-01-12 08:18] LABS: Anion Gap 18 mmol/L; BUN/Creatinine Ratio 8.88; Blood Urea Nitrogen 8 mg/dL (7-17); Calcium 8.5 mg/dL (8.4-10.2); Carbon Dioxide 23 mmol/L (22-30); Chloride 102.1 mmol/L (98-107); Glucose 130 mg/dL (65-100); Potassium 3.1 mmol/L (3.6-5.0); Sodium 140 mmol/L (137-145)
[2017-01-12] MEDS: FERGON PO SCH (09:43)
[2017-01-12] MEDS: LOVENOX SUB-Q SCH ×2 (09:44→22:00)
[2017-01-12] MEDS: VITAMIN D3 PO SCH (09:44)
[2017-01-12] MEDS: PROTONIX PO SCH (09:45)
--- NOTE | 2017-01-12 12:07 | Progress Note ---
Subjective Date of service: 01/12/17 Principal diagnosis: Acute Respiratory Failure on MVSl s/p left TKR; Obesity Interval history: patient shift to 3rd floor med surg unit, doing better, no complaints, afebrile , stable, dressing dry. knee exercise taught cpm 0-50 deg adv as tolerated. pillow under ankle when not on cpm PT OT to work on her. Objective - Labs CBC & BMP: 01/12/17 06:54 01/12/17 06:54 Labs: Abnormal lab results 01/12/17 01/12/17 Range/Units 06:54 06:54 WBC 11.2 H (4.5-11.0) K/mm3 Hgb 9.9 L (10.1-14.3) gm/dl MCH 27 L (28-32) pg Plt Count 116 L (140-440) K/mm3 [place] % (Auto) 10.5 H (0.0-7.3) % [place] # 1.2 H (0.0-0.8) K/mm3 Seg Neutrophils % 71.8 H (40.0-70.0) % Seg Neutrophils # 8.0 H (1.8-7.7) K/mm3 Potassium 3.1 L D (3.6-5.0) mmol/L Glucose 130 H (65-100) mg/dL
[2017-01-12] MEDS ORDERED: K-DUR PO ONE ×2 (13:12→18:00)
[2017-01-12] MEDS: TYLENOL PO PRN (17:29)
--- NOTE | 2017-01-12 19:35 | Progress Note ---
Assessment and Plan Patient resting on room air. S/P left knee surgery. No complaint of chest pain or shortness of breath. - Patient Problems (1) Acute respiratory failure with hypoxia and hypercapnia Current Visit: Yes Status: Acute Plan to address problem: Improved. Patient resting on room air. O2 satuaration 96% on room air. (2) Altered mental status Current Visit: Yes Status: Acute Qualifiers: Altered mental status type: A Coma depth: C Coma timing: C Plan to address problem: Improved. (3) Obesity Current Visit: Yes Status: Acute Qualifiers: Obesity type: O Obesity severity: O Plan to address problem: Weight reduction diet. Recimmend to consult [employer]. (4) Total knee replacement status Current Visit: Yes Status: Acute Qualifiers: Laterality: L Plan to address problem: Management as per orthopedic surgery. (5) Symptomatic cholelithiasis Current Visit: No Status: Acute Plan to address problem: Management as per primary care and surgery Subjective Date of service: 01/12/17 Principal diagnosis: Acute Respiratory Failure on MVSl s/p left TKR; Obesity Interval history: Patient resting on room air. S/P Left knee surgery. No complaint of chest pain or shortness of breath. Objective Vital Signs - 12hr 01/12/17 01/12/17 01/12/17 08:05 12:43 17:15 Temperature 100.2 F H 97.6 F Pulse Rate [ 107 H 120 H Left Radial] Respiratory 20 18 Rate Blood Pressure 117/55 138/63 [Left Radial Artery] O2 Sat by Pulse 98 97 Oximetry Constitutional: no acute distress, alert Eyes: non-icteric ENT: oropharynx moist Neck: supple, no lymphadenopathy Effort: normal Ascultation: Bilateral: rhonchi Cardiovascular: regular rate and rhythm Gastrointestinal: normoactive bowel sounds, soft, non-tender, non-distended Integumentary: normal Extremities: no cyanosis, pulses normal, no ischemia or petechiae Neurologic: normal mental status, non-focal exam, pupils equal and round, motor strength normal and Psychiatric: mood appropriate, affect normal CBC and BMP: 01/12/17 06:54 01/12/17 06:54 ABG, PT/INR, D-dimer: ABG POC ABG pH 7.427 (7.35-7.45) 01/10/17 21:43 POC ABG pCO2 34.8 (35-45) L 01/10/17 21:43 POC ABG pO2 107 (80-105) H 01/10/17 21:43 POC ABG HCO3 22.9 01/10/17 21:43 POC ABG Total CO2 24 01/10/17 21:43 POC ABG O2 Sat 98 01/10/17 21:43 PT/INR, D-dimer PT 13.8 Sec. (12.2-14.9) 01/10/17 03:59 INR 1.07 (0.87-1.13) 01/10/17 03:59 Abnormal lab findings: Abnormal Labs 01/09/17 01/09/17 01/09/17 06:54 11:52 12:36 WBC Hgb MCH Plt Count Lymph % (Auto) [place] % (Auto) Lymph # [place] # Seg Neutrophils % Seg Neutrophils # POC ABG pH 7.261 L POC ABG pCO2 50.0 H POC ABG pO2 162 H Potassium Carbon Dioxide Glucose POC Glucose 110 H 132 H Calcium Total Protein Albumin 01/09/17 01/09/17 01/09/17 14:39 14:48 14:48 WBC Hgb MCH 27 L Plt Count 127 L Lymph % (Auto) 8.2 L [place] % (Auto) Lymph # 0.6 L [place] # Seg Neutrophils % 87.5 H Seg Neutrophils # POC ABG pH 7.340 L POC ABG pCO2 POC ABG pO2 74 L Potassium Carbon Dioxide 20 L Glucose 154 H POC Glucose Calcium 8.2 L Total Protein 6.1 L Albumin 3.3 L 01/09/17 01/10/17 01/10/17 21:19 03:59 04:53 WBC Hgb MCH Plt Count Lymph % (Auto) [place] % (Auto) Lymph # [place] # Seg Neutrophils % Seg Neutrophils # POC ABG pH 7.256 L 7.339 L POC ABG pCO2 50.0 H POC ABG pO2 118 H Potassium Carbon Dioxide 21 L Glucose 119 H POC Glucose Calcium 7.9 L Total Protein Albumin 01/10/17 01/10/17 01/10/17 13:59 21:20 21:43 WBC Hgb MCH Plt Count Lymph % (Auto) [place] % (Auto) Lymph # [place] # Seg Neutrophils % Seg Neutrophils # POC ABG pH POC ABG pCO2 34.8 L POC ABG pO2 113 H 28 L 107 H Potassium Carbon Dioxide Glucose POC Glucose Calcium Total Protein Albumin 01/12/17 01/12/17 01/12/17 06:54 06:54 11:43 WBC 11.2 H Hgb 9.9 L MCH 27 L Plt Count 116 L Lymph % (Auto) [place] % (Auto) 10.5 H Lymph # [place] # 1.2 H Seg Neutrophils % 71.8 H Seg Neutrophils # 8.0 H POC ABG pH POC ABG pCO2 POC ABG pO2 Potassium 3.1 L D Carbon Dioxide Glucose 130 H POC Glucose 140 H Calcium Total Protein Albumin Chest x-ray: report reviewed (Borderline heart size, lungs clear.)
[2017-01-13] MEDS: TYLENOL PO PRN ×2 (07:03→15:39)
[2017-01-13] MEDS: VITAMIN D3 PO SCH ×2 (09:24→11:43)
[2017-01-13] MEDS: PROTONIX PO SCH (09:25)
[2017-01-13] MEDS: LOVENOX SUB-Q SCH (09:26)
[2017-01-13] MEDS: FERGON PO SCH (09:31)
[2017-01-13] MEDS ORDERED: NAMENDA XR PO SCH (10:00)
[2017-01-13] MEDS ORDERED: DOCUSATE SODIUM 100 MG PO PRN (10:01)
[2017-01-13] MEDS: DUONEB 0.5 MG-3 MG/3 ML SOLN IH SCH ×3 (11:53→19:37)
--- NOTE | 2017-01-13 14:29 | Progress Note ---
Assessment and Plan Assessment and plan: (1) Acute respiratory failure with hypoxia and hypercapnia Patient has been successfully weaned off the vent, continue supplemental oxygen Given hx of tobacco abuse, she likely has COPD, if she is not weaned off oxygen today, will obtain spirometry and start steroids and nebs (2) left Total knee replacement status Continue postop care by orthopedic surgery (3) Obesity Calorie controlled diet (4) Altered mental status Resolved (5) Discharge planning issues PT evaluation and likely discharged to rehabilitation History Interval history: Patient is doing well, on 2L oxygen, no events overnight, still requiring supplementat oxygen, admits to a long hx of tobacco abuse Hospitalist Physical - Physical exam Narrative exam: General: Patient appears well in no distress HEENT: MMM, EOMI cardiac: S1-S2 heard lungs: Reduced air entry abdomen: soft, nontender, nondistended bowel sounds positive extremities: no edema clubbing or cyanosis Skin: no rash or lesion Neuro: no focal deficit Psych: appropriate behavior and mood, cognition intact - Constitutional Vitals: Temp Pulse Resp BP Pulse Ox 99.1 F 84 18 149/70 90 01/13/17 08:05 01/13/17 11:53 01/13/17 11:53 01/13/17 08:05 01/13/17 08:05 Results - Labs CBC & Chem 7: 01/12/17 06:54 01/12/17 06:54 Labs: Laboratory Last Values WBC 11.2 K/mm3 (4.5-11.0) H 01/12/17 06:54 RBC 3.66 M/mm3 (3.65-5.03) 01/12/17 06:54 Hgb 9.9 gm/dl (10.1-14.3) L 01/12/17 06:54 Hct 31.7 % (30.3-42.9) 01/12/17 06:54 MCV 87 fl (79-97) 01/12/17 06:54 MCH 27 pg (28-32) L 01/12/17 06:54 MCHC 31 % (30-34) 01/12/17 06:54 RDW 14.3 % (13.2-15.2) 01/12/17 06:54 Plt Count 116 K/mm3 (140-440) L 01/12/17 06:54 Lymph % (Auto) 14.9 % (13.4-35.0) 01/12/17 06:54 [place] % (Auto) 10.5 % (0.0-7.3) H 01/12/17 06:54 Eos % (Auto) 2.5 % (0.0-4.3) 01/12/17 06:54 Baso % (Auto) 0.3 % (0.0-1.8) 01/12/17 06:54 Lymph # 1.7 K/mm3 (1.2-5.4) 01/12/17 06:54 [place] # 1.2 K/mm3 (0.0-0.8) H 01/12/17 06:54 Eos # 0.3 K/mm3 (0.0-0.4) 01/12/17 06:54 Baso # 0.0 K/mm3 (0.0-0.1) 01/12/17 06:54 Seg Neutrophils % 71.8 % (40.0-70.0) H 01/12/17 06:54 Seg Neutrophils # 8.0 K/mm3 (1.8-7.7) H 01/12/17 06:54 PT 13.8 Sec. (12.2-14.9) 01/10/17 03:59 INR 1.07 (0.87-1.13) 01/10/17 03:59 POC ABG pH 7.427 (7.35-7.45) 01/10/17 21:43 POC ABG pCO2 34.8 (35-45) L 01/10/17 21:43 POC ABG pO2 107 (80-105) H 01/10/17 21:43 POC ABG HCO3 22.9 01/10/17 21:43 POC ABG Total CO2 24 01/10/17 21:43 POC ABG O2 Sat 98 01/10/17 21:43 POC ABG Base Excess -1 01/10/17 21:43 FiO2 3 % 01/10/17 21:43 Sodium 140 mmol/L (137-145) 01/12/17 06:54 Potassium 3.1 mmol/L (3.6-5.0) L D 01/12/17 06:54 Chloride 102.1 mmol/L (98-107) 01/12/17 06:54 Carbon Dioxide 23 mmol/L (22-30) 01/12/17 06:54 Anion Gap 18 mmol/L 01/12/17 06:54 BUN 8 mg/dL (7-17) 01/12/17 06:54 Creatinine 0.9 mg/dL (0.7-1.2) 01/12/17 06:54 Estimated GFR > 60 ml/min 01/12/17 06:54 BUN/Creatinine Ratio 8.88 % 01/12/17 06:54 Glucose 130 mg/dL (65-100) H 01/12/17 06:54 POC Glucose 140 (70-105) H 01/12/17 11:43 Calcium 8.5 mg/dL (8.4-10.2) 01/12/17 06:54 Phosphorus 3.3 mg/dL (2.5-4.5) 01/09/17 14:48 Magnesium 1.7 mg/dL (1.7-2.3) 01/09/17 14:48 Total Bilirubin 0.2 mg/dL (0.1-1.2) 01/09/17 14:48 AST 16 units/L (5-40) 01/09/17 14:48 ALT 10 units/L (7-56) 01/09/17 14:48 Alkaline Phosphatase 113 units/L (35-129) 01/09/17 14:48 Total Protein 6.1 g/dL (6.3-8.2) L 01/09/17 14:48 Albumin 3.3 g/dL (3.9-5) L 01/09/17 14:48 Albumin/Globulin Ratio 1.2 % 01/09/17 14:48 Blood Type O POSITIVE 01/09/17 06:45 Antibody Screen Negative 01/09/17 06:45
--- NOTE | 2017-01-13 14:35 | Discharge Summary ---
Providers - Providers Date of Admission: 01/09/17 06:07 Attending physician: SUZANNE ROCA MD 01/09/17 11:06 Consult to Case Management [CONS] Routine Services Needed at Discharge: Home Health Services DME Equipment Physical Therapy Material Man Notified:: case management Phone number called:: [phone] Was contact made?: Yes If yes, spoke with:: lottie Time called:: 13:25 Consult to Physician [CONS] Routine Consulting Provider: OVIDIO JOSE Reason For Exam: medical management and postop Place consult to:: Ovidio Jose Notified:: yes Phone number called:: [phone] Was contact made?: Yes If yes, spoke with:: Joshua Jose Time called:: 15:27 Occupational Therapy Evaluate and Treat [CONS] Routine Comment: Reason For Exam: S/P TKA LEFT SIDE 01/09/17 11:08 Physical Therapy Evaluation and Treat [CONS] Routine Comment: Reason For Exam: S/P TKA LEFT SIDE Mode of Transport?: Walker Weight bearing status?: Full wt bearing Assistive devices?: Yes 01/09/17 12:45 Consult to Dietitian/Nutrition [CONS] Routine Physician Instructions: Reason For Exam: Reason for Consult: Poor oral intake 01/09/17 13:17 Consult to Physician [CONS] Urgent Consulting Provider: RAMON GARCIA Reason For Exam: ICU ADMISSION PATIENT ON VENT Place consult to:: DR GARCIA Notified:: YES Was contact made?: Yes If yes, spoke with:: DR Josias RODRÍGUEZ 01/12/17 20:05 Physical Therapy Evaluation and Treat [CONS] Routine Comment: Reason For Exam: s/p surgery left knee replacement Mode of Transport?: Walker 01/13/17 11:38 Consult Acute Rehabilitation [CONS] Routine Consulting Provider: ARACELY WANG Reason For Exam: s/p knee replacement with acute resp failure Primary care physician: VONDA RODRÍGUEZ Hospitalization Hospital course: 81F who presented for elected Left total knee replacement, unfortunately post operatively patient had respiratory compromise causing her to remain on vent post op, she was transfered to ICU, and then weaned off the vent. (1) Acute respiratory failure with hypoxia and hypercapnia Patient has been successfully weaned off the vent, continue supplemental oxygen Given hx of tobacco abuse, and her chronic hypoxic respiratory failure, she was clinically diagnosed with COPD and rx with steroids and nebs (2) left Total knee replacement status Continue postop care by orthopedic surgery (3) Obesity Calorie controlled diet Disposition: DC/TX INPT REHAB FACILITY Time spent for discharge: 35 minutes Core Measure Documentation - Palliative Care Palliative Care/ Comfort Measures: Not Applicable - Core Measures Any of the following diagnoses?: none Exam - Constitutional Vitals: Temp Pulse Resp BP Pulse Ox 99.1 F 84 18 149/70 90 01/13/17 08:05 01/13/17 11:53 01/13/17 11:53 01/13/17 08:05 01/13/17 08:05 General appearance: Present: no acute distress, well-nourished - EENT Eyes: Present: PERRL ENT: hearing intact, clear oral mucosa - Neck Neck: Present: supple, normal ROM - Respiratory Respiratory effort: normal Respiratory: bilateral: CTA, wheezing (mild) - Cardiovascular Heart Sounds: Present: S1 & S2. Absent: rub, click - Extremities Extremities: pulses symmetrical, No edema Peripheral Pulses: within normal limits - Abdominal General gastrointestinal: Present: soft, non-tender, non-distended, normal bowel sounds Female genitourinary: Present: normal - Integumentary Integumentary: Present: clear, warm, dry - Musculoskeletal Musculoskeletal: gait normal, strength equal bilaterally - Psychiatric Psychiatric: appropriate mood/affect, intact judgment & insight - Neurologic Neurologic: CNII-XII intact, moves all extremities Plan Follow up with: VONDA RODRÍGUEZ MD [Primary Care Provider] - 7 Days Prescriptions: Azithromycin [Zithromax TAB] 250 mg PO DAILY #5 tab Prednisone [predniSONE 5 mg (6-Day Pack, 21 Tabs)] 5 mg PO .TAPER #1 tab.ds.pk Tiotropium [place] [Spiriva Respimat] 4 gm IH DAILY #1 mist.inhal
--- NOTE | 2017-01-13 15:02 | Consultation ---
History of Present Illness - Reason for Consult Consult date: 01/13/17 Evaluate for Acute IRU - History of Present Illness 81 y.o. female admitted for left TKA; pt reports worsening knee pain for many years and failed conservative therapy. Post-op noted to have respiratory failure; ongoing vent needs. Pt is now extubated; on nasal cannula. Fever work -up negative. Consult requested for post-acute placement recommendations. Past History Past Medical History: arthritis, GERD, hypertension, hyperlipidemia, other ( dementia; peripheral neuropathy) Past Surgical History: total knee replacement Social history: other (lives in assisted living facility; reports being able to ambulate to the dining area daily with cane or RW; complete self cares in room) . denies: smoking, alcohol abuse Family history: hypertension Medications and Allergies Allergies Allergy/AdvReac Type Severity Reaction Status Date / Time iodine Allergy Unknown Verified 03/10/15 13:28 Home Medications Medication Instructions Recorded Confirmed Last Taken Type Docusate Sodium [Promolaxin TAB] 100 mg PO PRN PRN 03/10/15 12/17/16 01/08/17 History Esomeprazole Magnesium [NexIUM] 40 mg PO QDAY 03/10/15 12/17/16 01/08/17 History Lisinopril [Zestril TAB] 20 mg PO QDAY 03/10/15 01/09/17 01/09/17 05:30 History Lurasidone (Nf) [Latuda (Nf)] 80 mg PO QDAY 03/10/15 12/17/16 01/08/17 History Memantine (Nf) [Namenda (Nf)] 10 mg PO BID 03/10/15 12/17/16 01/08/17 History Metoprolol [Lopressor TAB] 25 mg PO DAILY 12/17/16 01/09/17 01/08/17 10:00 History cloZAPine 100 mg PO QHS 12/17/16 12/17/16 01/08/17 History Cholecalciferol (Vitamin D3) 5,000 unit PO DAILY 12/19/16 12/19/16 01/08/17 History [Vitamin D3] Ergocalciferol [Vitamin D2] 1 cap PO QWEEK 12/19/16 12/19/16 01/08/17 History Ferrous Gluconate [Fergon 325 MG 325 mg PO QDAY 12/19/16 12/19/1601/08/17 History tab] Polyethylene Glycol 3350 1 dose PO DAILY 12/19/16 12/19/16 01/08/17 History Pravastatin Sodium [Pravastatin] 20 mg PO QHS 12/19/16 12/19/16 01/08/17 History Azithromycin [Zithromax TAB] 250 mg PO DAILY #5 tab 01/13/17 Unknown Rx Ipratropium/Albuterol Sulfate 1 ampul IH QIDRT ampul.neb 01/13/17 Unknown Rx [Duoneb 0.5 mg-3 mg/3 ml Soln] Min Oil/Petrolatum [Artificial 1 applic OU Q4HR PRN #1 tube 01/13/17 Unknown Rx Tears Ophth Oint] Prednisone [predniSONE 5 mg (6-Day 5 mg PO .TAPER #1 tab.ds.pk 01/13/17 Unknown Rx Pack, 21 Tabs)] Tiotropium [place] [Spiriva 4 gm IH DAILY #1 mist.inhal 01/13/17 Unknown Rx Respimat] Active Meds: Active Medications Acetaminophen (Tylenol) 650 mg PO Q4H PRN PRN Reason: Pain MILD(1-3)/Fever >100.5/GODOY Last Admin: 01/13/17 07:03 Dose: 650 mg Albuterol/Ipratropium (Duoneb 0.5 Mg-3 Mg/3 Ml Soln) 1 ampul IH QIDRT [facility] Last Admin: 01/13/17 11:53 Dose: 1 ampul Cholecalciferol (Vitamin D3) 5,000 unit PO DAILY [facility] Last Admin: 01/13/17 11:43 Dose: Not Given Docusate Sodium (Colace) 100 mg PO PRN PRN PRN Reason: CONSTIPATION Enoxaparin Sodium (Lovenox) 30 mg SUB-Q BID [facility] Last Admin: 01/13/17 09:26 Dose: 30 mg Ephedrine Sulfate (Ephedrine Sulfate) 20 mg IV Q5M PRN PRN Reason: Blood Pressure Last Admin: 01/09/17 12:15 Dose: 20 mg Ergocalciferol (Vitamin D2) 50,000 unit PO [facility] Fentanyl (Sublimaze) 25 mcg IV Q4H PRN PRN Reason: Agitation Last Admin: 01/11/17 04:33 Dose: 25 mcg Ferrous Gluconate (Fergon) 325 mg PO QDAY [facility] Last Admin: 01/13/17 09:31 Dose: 325 mg Hydrophilic Ointment (Vaseline Lip Therapy) 1 applic TP Q2HR PRN PRN Reason: Dry Lips Lisinopril (Zestril) 20 mg PO QDAY [facility] Magnesium Hydroxide (Milk Of Magnesia) 30 ml PO Q4H PRN PRN Reason: Constipation Memantine (Namenda Xr) 28 mg PO QDAY [facility] Metoprolol Tartrate (Lopressor) 25 mg PO DAILY [facility] Multi-Ingred Cream/Lotion/Oil/Oint (Artificial Tears Ophth Oint) 1 applic OU Q4HR PRN PRN Reason: Dry Eye(s) Naloxone HCl (Narcan 0.4 Mg/1 Ml) 0.1 mg IV ONCE PRN PRN Reason: Sedation Last Admin: 01/09/17 13:38 Dose: 0.1 mg Pantoprazole Sodium (Protonix) 40 mg PO DAILY [facility] Last Admin: 01/13/17 09:25 Dose: 40 mg Polyethylene Glycol (Miralax 3350) 17 gm PO QDAY [facility] Promethazine HCl (Phenergan) 25 mg [place] Q6H PRN PRN Reason: Nausea And Vomiting Sodium Chloride (Sodium Chloride Flush Syringe 10 Ml) 10 ml IV PRN NR Stop: 01/14/17 23:59 Sodium Chloride (Nacl 0.9% 500 Ml) 1 ml IV DIRECT [facility] Review of Systems All systems: negative Ears, nose, mouth and throat: no headache Cardiovascular: lightheadedness, no chest pain Respiratory: shortness of breath, no cough Gastrointestinal: constipation, no nausea, no vomiting Genitourinary Female: other (+maciel) Exam - Constitutional Vitals: Vital Signs - 12hr 01/13/17 01/13/17 08:05 11:53 Temperature 99.1 F Pulse Rate [ 84 Anterior Bilateral] Pulse Rate [ 106 H Left Radial] Respiratory 20 Rate Respiratory 18 Rate [Anterior Bilateral] Blood Pressure 149/70 [Left Radial Artery] O2 Sat by Pulse 90 Oximetry General appearance: no acute distress, other (sitting up in bed) - EENT Eyes: EOM intact ENT: hearing intact - Neck Neck: supple, normal ROM - Respiratory Respiratory effort: normal Respiratory: bilateral: CTA - Cardiovascular Rhythm: regular Heart Sounds: Present: S1 & S2 - Extremities Extremity abnormal: other (cryo-cuff to left knee; baseline intention tremor to LUE) - Gastrointestinal General gastrointestinal: Present: soft, non-tender, non-distended, normal bowel sounds - Musculoskeletal Musculoskeletal: left sided weakness (2/5 left hip flexion in bed; intact ankle DF/PF) - Neurologic Neurologic: CNII-XII intact, moves all extremities, other (sensation grossly intact) - Psychiatric Psychiatric: appropriate mood/affect, intact judgment & insight, no memory intact (oriented to self, birthdate; "de[birth year]"; "" for year; aware that she is in the hospital from knee surgery, but does not know the name of facility; state- "[place]"), cooperative - Allied health notes Allied health notes reviewed: PT (modA for transfers and gait, 30 feet with RW) , OT (s/u to [facility] for ADLs) - Labs CBC & Chem 7: 01/12/17 06:54 01/12/17 06:54 Labs: Laboratory Results - last 72 hr 01/10/17 01/10/17 01/12/17 21:20 21:43 06:54 WBC 11.2 H RBC 3.66 Hgb 9.9 L Hct 31.7 MCV 87 MCH 27 L MCHC 31 RDW 14.3 Plt Count 116 L Lymph % (Auto) 14.9 Bib[place] % (Auto) 10.5 H Eos % (Auto) 2.5 Baso % (Auto) 0.3 Lymph # 1.7 Bibb # 1.2 H Eos # 0.3 Baso # 0.0 Seg Neutrophils % 71.8 H Seg Neutrophils # 8.0 H POC ABG pH 7.393 7.427 POC ABG pCO2 38.5 34.8 L POC ABG pO2 28 L 107 H POC ABG HCO3 23.5 22.9 POC ABG Total CO2 25 24 POC ABG O2 Sat 53 98 POC ABG Base Excess -1 -1 FiO2 3 3 Sodium Potassium Chloride Carbon Dioxide Anion Gap BUN Creatinine Estimated GFR BUN/Creatinine Ratio Glucose POC Glucose Calcium 01/12/17 01/12/17 06:54 11:43 WBC RBC Hgb Hct MCV MCH MCHC RDW Plt Count Lymph % (Auto) [place] % (Auto) Eos % (Auto) Baso % (Auto) Lymph # Bib[place] # Eos # Baso # Seg Neutrophils % Seg Neutrophils # POC ABG pH POC ABG pCO2 POC ABG pO2 POC ABG HCO3 POC ABG Total CO2 POC ABG O2 Sat POC ABG Base Excess FiO2 Sodium 140 Potassium 3.1 L D Chloride 102.1 Carbon Dioxide 23 Anion Gap 18 BUN 8 Creatinine 0.9 Estimated GFR > 60 BUN/Creatinine Ratio 8.88 Glucose 130 H POC Glucose 140 H Calcium 8.5 Assessment and Plan Patient was assessed and evaluated for Acute Inpatient Rehab Unit. 81 y.o. female admitted for left TKA; acute respiratory failure post-op requiring vent, now on nasal cannula; metabolic encephalopathy; temp on yesterday now resolved; intermittent tachycardia. As noted, pt is with ongoing medical and functional deficits following surgery. Pt would benefit from inpatient rehabilitation course to address decline in functional status from baseline, wean oxygen as she was not on chronic oxygen prior to admission; resume home meds; monitor HR; HTN management. Pt has been participating well with therapies and is thought to be able to participate in 3 hours of therapy including PT/OT, 5 days per week, and make reasonable functional improvement prior to returning to assisted living facility. Pt previously independent with functional mobility and self cares prior to admission. At this time, pt is noted to require S/U to [facility] for ADLs, and modA for transfers and gait. Potential barriers/complications that would currently prevent a safe return home or transfer to a lower level of care include impaired mobility, balance, strength; ongoing oxygen needs; tachycardia. Pt has good rehab potential, good overall medical prognosis, and is motivated to participate. Pt has good family support with high likelihood of returning to community at discharge. Pt is for IRU admission on today; case discussed with IM. - Patient Problems (1) Total knee replacement status Current Visit: Yes Status: Acute Qualifiers: Laterality: L (2) Acute respiratory failure with hypoxia and hypercapnia Current Visit: Yes Status: Acute (3) Unsteady gait Current Visit: Yes Status: Acute (4) HTN (hypertension) Current Visit: Yes Status: Chronic Qualifiers: Hypertension type: essential hypertension Qualified Code(s): I10 - Essential (primary) hypertension
[2017-01-13 17:28] VITALS: BP 131/61
[2017-01-13] MEDS: MIRALAX 3350 PO SCH ×2 (17:44→17:46)
--- NOTE | 2017-01-13 19:36 | Progress Note ---
Assessment and Plan Patient resting on room air. S/P left knee surgery. No complaint of chest pain or shortness of breath. - Patient Problems (1) Acute respiratory failure with hypoxia and hypercapnia Current Visit: Yes Status: Acute Plan to address problem: Improved. Patient resting on room air. O2 satuaration 96% on room air. (2) Altered mental status Current Visit: Yes Status: Acute Qualifiers: Altered mental status type: A Coma depth: C Coma timing: C Plan to address problem: Improved. (3) Obesity Current Visit: Yes Status: Acute Qualifiers: Obesity type: O Obesity severity: O Plan to address problem: Weight reduction diet. 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 (4) Total knee replacement status Current Visit: Yes Status: Acute Qualifiers: Laterality: L Plan to address problem: Management as per orthopedic surgery. (5) Symptomatic cholelithiasis Current Visit: No Status: Acute Plan to address problem: Management as per primary care and surgery Subjective Date of service: 01/13/17 Principal diagnosis: Acute Respiratory Failure on MVSl s/p left TKR; Obesity Interval history: Patient resting on room air. S/P Left knee surgery. No complaint of chest pain or shortness of breath. Objective Vital Signs - 12hr 01/13/17 01/13/17 01/13/17 08:05 11:53 12:15 Temperature 99.1 F Pulse Rate [ 84 84 Anterior Bilateral] Pulse Rate [ 106 H Left Radial] Respiratory 20 Rate Respiratory 18 18 Rate [Anterior Bilateral] Blood Pressure 149/70 [Left Radial Artery] O2 Sat by Pulse 90 Oximetry 01/13/17 01/13/17 15:00 18:39 Temperature 98.6 F Pulse Rate [ 86 Anterior Bilateral] Pulse Rate [ 118 H Left Radial] Respiratory 24 Rate Respiratory 18 Rate [Anterior Bilateral] Blood Pressure 131/61 [Left Radial Artery] O2 Sat by Pulse 96 Oximetry Constitutional: no acute distress, alert Eyes: non-icteric ENT: oropharynx moist Neck: supple, no lymphadenopathy Effort: normal Ascultation: Bilateral: clear, rhonchi Cardiovascular: regular rate and rhythm Gastrointestinal: normoactive bowel sounds, soft, non-tender, non-distended Integumentary: normal Extremities: no cyanosis, pulses normal, no ischemia or petechiae Neurologic: normal mental status, non-focal exam, pupils equal and round, motor strength normal and Psychiatric: mood appropriate, affect normal CBC and BMP: 01/12/17 06:54 01/12/17 06:54 ABG, PT/INR, D-dimer: ABG POC ABG pH 7.427 (7.35-7.45) 01/10/17 21:43 POC ABG pCO2 34.8 (35-45) L 01/10/17 21:43 POC ABG pO2 107 (80-105) H 01/10/17 21:43 POC ABG HCO3 22.9 01/10/17 21:43 POC ABG Total CO2 24 01/10/17 21:43 POC ABG O2 Sat 98 01/10/17 21:43 PT/INR, D-dimer PT 13.8 Sec. (12.2-14.9) 01/10/17 03:59 INR 1.07 (0.87-1.13) 01/10/17 03:59 Abnormal lab findings: Abnormal Labs 01/09/17 01/09/17 01/09/17 06:54 11:52 12:36 WBC Hgb MCH Plt Count Lymph % (Auto) [place] % (Auto) Lymph # [place] # Seg Neutrophils % Seg Neutrophils # POC ABG pH 7.261 L POC ABG pCO2 50.0 H POC ABG pO2 162 H Potassium Carbon Dioxide Glucose POC Glucose 110 H 132 H Calcium Total Protein Albumin 01/09/17 01/09/17 01/09/17 14:39 14:48 14:48 WBC Hgb MCH 27 L Plt Count 127 L Lymph % (Auto) 8.2 L [place] % (Auto) Lymph # 0.6 L [place] # Seg Neutrophils % 87.5 H Seg Neutrophils # POC ABG pH 7.340 L POC ABG pCO2 POC ABG pO2 74 L Potassium Carbon Dioxide 20 L Glucose 154 H POC Glucose Calcium 8.2 L Total Protein 6.1 L Albumin 3.3 L 01/09/17 01/10/17 01/10/17 21:19 03:59 04:53 WBC Hgb MCH Plt Count Lymph % (Auto) [place] % (Auto) Lymph # [place] # Seg Neutrophils % Seg Neutrophils # POC ABG pH 7.256 L 7.339 L POC ABG pCO2 50.0 H POC ABG pO2 118 H Potassium Carbon Dioxide 21 L Glucose 119 H POC Glucose Calcium 7.9 L Total Protein Albumin 01/10/17 01/10/17 01/10/17 13:59 21:20 21:43 WBC Hgb MCH Plt Count Lymph % (Auto) [place] % (Auto) Lymph # [place] # Seg Neutrophils % Seg Neutrophils # POC ABG pH POC ABG pCO2 34.8 L POC ABG pO2 113 H 28 L 107 H Potassium Carbon Dioxide Glucose POC Glucose Calcium Total Protein Albumin 01/12/17 01/12/17 01/12/17 06:54 06:54 11:43 WBC 11.2 H Hgb 9.9 L MCH 27 L Plt Count 116 L Lymph % (Auto) [place] % (Auto) 10.5 H Lymph # [place] # 1.2 H Seg Neutrophils % 71.8 H Seg Neutrophils # 8.0 H POC ABG pH POC ABG pCO2 POC ABG pO2 Potassium 3.1 L D Carbon Dioxide Glucose 130 H POC Glucose 140 H Calcium Total Protein Albumin Chest x-ray: report reviewed (Borderline heart size. Lungs clear.), image reviewed
[2017-01-13] MEDS ORDERED: MEMANTINE 10 MG PO SCH (22:00)
[2017-01-13] MEDS ORDERED: COLACE PO PRN (22:00)
[2017-01-14] MEDS ORDERED: LOPRESSOR PO SCH (10:00)
[2017-01-14] MEDS ORDERED: ZESTRIL PO SCH (10:00)
[2017-01-15] MEDS ORDERED: VITAMIN D2 PO SCH (10:00)
== END 2017-01-13 20:10 | DRG 981 ==
LOC: 3A 06:07 → 2B-SURG 11:55 → CC1 13:08 → 3A 01-11 20:49
PROVIDERS: ADMIT Orthopaedic Surgery; ATTEND Internal Medicine
PROC: 0SRD0J9 Replacement of Left Knee Joint with Synthetic Substitute, Cemented, Open Approach (ICD-10-PCS; principal; 2017-01-09)
PROC: 0SBD0ZZ Excision of Left Knee Joint, Open Approach (ICD-10-PCS; principal; 2017-01-09)
PROC: 0BH17EZ Insertion of Endotracheal Airway into Trachea, Via Natural or Artificial Opening (ICD-10-PCS; 2017-01-09)
PROC: 5A1935Z Respiratory Ventilation, Less than 24 Consecutive Hours (ICD-10-PCS; 2017-01-09)
DX: J96.21 Acute and chronic respiratory failure with hypoxia (principal); G93.41 Metabolic encephalopathy; E87.2 Acidosis; M17.12 Unilateral primary osteoarthritis, left knee; J96.02 Acute respiratory failure with hypercapnia; R68.0 Hypothermia, not associated with low environmental temperature; I10 Essential (primary) hypertension; F17.210 Nicotine dependence, cigarettes, uncomplicated; K21.9 Gastro-esophageal reflux disease without esophagitis; F03.90 Unspecified dementia, unspecified severity, without behavioral disturbance, psychotic disturbance, mood disturbance, and anxiety; M67.20 Synovial hypertrophy, not elsewhere classified, unspecified site; E78.5 Hyperlipidemia, unspecified; D64.9 Anemia, unspecified; G62.9 Polyneuropathy, unspecified; K59.00 Constipation, unspecified; E55.9 Vitamin D deficiency, unspecified; E66.01 Morbid (severe) obesity due to excess calories; K80.20 Calculus of gallbladder without cholecystitis without obstruction; M21.062 Valgus deformity, not elsewhere classified, left knee; Z68.37 Body mass index [BMI] 37.0-37.9, adult; Z91.041 Radiographic dye allergy status; Z82.49 Family history of ischemic heart disease and other diseases of the circulatory system; J44.9 Chronic obstructive pulmonary disease, unspecified
CPT/HCPCS: 36415; 36600; 62324; 64450; 71010; 74000; 80048; 80053; 82803; 82962; 83735; 84100; 85014; 85018; 85025; 85610; 86850; 86900; 86901; 87040; 87070; 87116; 87205; 88305; 88311; 94002; 94003; 94640; 94760; C1776; C9113; G8978-GP; G8979-GP; G8987-GO; G8988-GO; G8989-GO; J0690; J1100; J1650; J2270; J2310; J2405; J2543; J2704; J2710; J2930; J3010; J7030; J7120